=== PATIENT | female | born 1940 | race Caucasian/White ===

== ENCOUNTER 2016-06-21 13:28 | Inpatient (IN) | payer MEDICARE ==
[~2016-06-21] VITALS: Ht 149.9 cm; Wt 46.4 kg
[~2016-06-21 13:28] MED LIST: ACET-784 PO; BUME1TAB30 PO; CARB1TAB14 PO; CRAN250T2 PO; DIVA250T4 PO; LEVO125T4 PO; MIRT15 PO; MOM30 PO; MULT-1203 PO; NYST30C TP; OMEP20 PO; ONDA4TAB4 PO; POTA20PA3 PO; PREG25 PO; PROP10 PO; SIMV-259 PO
[2016-06-21] MEDS ORDERED: SODIUM CHLORIDE 0.9% 1,000 ML IV ONE (16:30)
[2016-06-21] MEDS ORDERED: 0.9% SODIUM CHLORIDE 10 ML SYRINGE IVP PRN (16:30)
[2016-06-21] MEDS ORDERED: KETOROLAC TROMETHAMINE 30 MG/ML VIAL IVP ONE (16:30)
[2016-06-21] MEDS ORDERED: MORPHINE SULFATE 4 MG/ML SYRINGE IVP ONE (16:30)
[2016-06-21] MEDS ORDERED: ONDANSETRON HCL 4 MG/2 ML VIAL IVP PRN ×2 (16:30→17:15)
[2016-06-21] MEDS ORDERED: ONDANSETRON HCL 4 MG/2 ML VIAL IVP ONE (16:30)
[2016-06-21 16:49] LABS: EOSINOPHILS % (AUTO) 0.1 % (1.0-6.0); HEMATOCRIT 44.4 % (36-46); HEMOGLOBIN 14.6 g/dL (12.0-16.0); LYMPHOCYTES % (AUTO) 7.6 % (22.0-44.0); MEAN CORPUSCULAR HEMOGLOBIN 30.5 pg (26.0-34.0); MEAN CORPUSCULAR HGB CONC 32.8 G/dL (31.0-37.0); MEAN CORPUSCULAR VOLUME 93 fL (80-100); MONOCYTES % (AUTO) 7.4 % (2.0-9.0); NEUTROPHILS # (AUTO) 11.6 K/uL (1.8-7.7); NEUTROPHILS % (AUTO) 84.9 % (40.0-70.0); PLATELET COUNT (AUTO) 352 K/uL (150-450); RED BLOOD CELL COUNT(AUTO) 4.78 MIL/uL (4.00-5.20); RED CELL DISTRIBUTION WIDTH 15.4 % (11.5-14.5); WHITE BLOOD COUNT (AUTO) 13.7 K/uL (4.5-11.0)
[2016-06-21 17:02] LABS: CALCIUM, TOTAL 10.3 mg/dL (8.8-10.5); CREATININE 2.81 mg/dL (0.60-1.30); POTASSIUM 3.9 mmol/L (3.5-5.1)
[2016-06-21 17:08] LABS: ALBUMIN 3.8 g/dL (3.4-5.0); BILIRUBIN,TOTAL 0.7 mg/dL (0.1-1.0); TOTAL PROTEIN, SERUM 7.3 g/dL (6.4-8.2)
[2016-06-21 17:15] LABS: PROTHROMBIN TIME 10.7 SEC (9.4-11.6)
[2016-06-21] MEDS ORDERED: BISACODYL 10 MG RECTAL RECTAL SUPPOSITORY PR PRN (17:15)
[2016-06-21] MEDS ORDERED: MAGNESIUM HYDROXIDE SUSPENSION 30 ML UDCUP PO PRN (17:15)
[2016-06-21] MEDS: HEPARIN SODIUM,PORCINE 5,000 UNITS/ML VIAL SQ SCH (17:47)
[2016-06-21 19:31] VITALS: BP 101/61
[2016-06-21] MEDS ORDERED: MIRTAZAPINE 15 MG TABLET PO SCH (21:00)
[2016-06-21] MEDS: CARBIDOPA/LEVODOPA 25-100 MG TABLET PO SCH (21:23)
[2016-06-21] MEDS: SIMVASTATIN 10 MG TABLET PO SCH (21:23)
[2016-06-21 23:28] VITALS: BP 98/56
[2016-06-22 04:16] VITALS: BP 106/58
[2016-06-22] MEDS: HYDROmorphone 2 MG/ML SYRINGE IVP PRN ×3 (04:20→17:25)
[2016-06-22] MEDS: LEVOTHYROXINE SODIUM 125 MCG TABLET PO SCH (06:21)
[2016-06-22] MEDS: HEPARIN SODIUM,PORCINE 5,000 UNITS/ML VIAL SQ SCH ×2 (06:21→20:47)
[2016-06-22 06:41] LABS: BASOPHILS # (AUTO) 0.02 K/uL (0.00-0.20); BASOPHILS % (AUTO) 0.2 % (0.0-2.0); EOSINOPHILS # (AUTO) 0.04 K/uL (0.00-0.70); EOSINOPHILS % (AUTO) 0.46 % (1.0-6.0); HEMATOCRIT 36.2 % (36-46); HEMOGLOBIN 12.2 g/dL (12.0-16.0); LYMPHOCYTES # (AUTO) 1.1 K/uL (1.0-4.8); LYMPHOCYTES % (AUTO) 14.2 % (22.0-44.0); MEAN CORPUSCULAR HEMOGLOBIN 31.3 pg (26.0-34.0); MEAN CORPUSCULAR HGB CONC 33.5 G/dL (31.0-37.0); MEAN CORPUSCULAR VOLUME 93 fL (80-100); MONOCYTES # (AUTO) 0.6 K/uL (0.1-1.0); MONOCYTES % (AUTO) 7.8 % (2.0-9.0); NEUTROPHILS # (AUTO) 6.1 K/uL (1.8-7.7); NEUTROPHILS % (AUTO) 77.4 % (40.0-70.0); PLATELET COUNT (AUTO) 231 K/uL (150-450); RED BLOOD CELL COUNT(AUTO) 3.88 MIL/uL (4.00-5.20); RED CELL DISTRIBUTION WIDTH 15.4 % (11.5-14.5); WHITE BLOOD COUNT (AUTO) 7.9 K/uL (4.5-11.0)
[2016-06-22] MEDS ORDERED: PNEUMOCOCCAL VACCINE POLYVALENT 0.5 ML VIAL [PPSV23] IM ONE (07:00)
[2016-06-22 07:15] VITALS: BP 116/74
[2016-06-22 07:32] LABS: ANION GAP 8 mmol/L (8-16); CALCIUM, TOTAL 8.8 mg/dL (8.8-10.5); CARBON DIOXIDE 28 mmol/L (22-29); CHLORIDE 106 mmol/L (98-107); CHOL/HDL RATIO 1.9 (3.9-5.7); CREATINE KINASE MB 1.6 ng/mL (0-5); CREATINE KINASE, TOTAL 162 U/L (26-192); CREATININE 1.57 mg/dL (0.60-1.30); GLOMERULAR FILTR. RATE CALC 32 mL/min (>60); POTASSIUM 3.6 mmol/L (3.5-5.1); SODIUM SERUM 142 mmol/L (136-145); THYROID STIMULATING HORMONE 0.25 uIU/mL (0.36-3.74); UREA NITROGEN, BLOOD 24 mg/dL (7-18)
[2016-06-22 07:33] LABS: HEMOGLOBIN A1C 4.5 % (4.5-6.2)
[2016-06-22] MEDS: DIVALPROEX SODIUM 500 MG DR TABLET PO SCH (08:03)
[2016-06-22] MEDS: MULTIVITAMINS, THERAPEUTIC TABLET PO SCH (08:03)
[2016-06-22] MEDS: CARBIDOPA/LEVODOPA 25-100 MG TABLET PO SCH ×3 (08:03→20:47)
[2016-06-22] MEDS: PREGABALIN 50 MG CAPSULE PO SCH (08:03)
[2016-06-22] MEDS: OMEPRAZOLE 20 MG CAPSULE PO SCH (08:03)
[2016-06-22 08:34] LABS: ADD UA MICROSCOPIC YES; APPEARANCE,URINE CLEAR (CLEAR); GLUCOSE, URINE (UA) NEGATIVE (NEGATIVE); KETONES,URINE NEGATIVE (NEGATIVE); LEUKOCYTE ESTERASE ,URINE SMALL (NEGATIVE); OCCULT BLOOD,URINE NEGATIVE (NEGATIVE); PROTEIN,URINE NEGATIVE (NEGATIVE)
[2016-06-22 08:41] LABS: RBC,URINE 0-2 /HPF (0-2); SQUAMOUS EPITHELIAL CELL,UR Few /LPF (None Seen)
[2016-06-22] MEDS ORDERED: BUMETANIDE 1 MG TABLET PO SCH (09:00)
[2016-06-22 11:00] VITALS: BP 85/57
[2016-06-22] MEDS ORDERED: PREG50 PO (14:19)
[2016-06-22] MEDS ORDERED: PROP20 PO (14:19)
[2016-06-22] MEDS ORDERED: DIVA500T35 PO (14:19)
[2016-06-22] MEDS ORDERED: MAGNESIUM OXIDE 400 MG TABLET PO PRN (14:45)
[2016-06-22] MEDS ORDERED: MAGNESIUM SULFATE 4 GM/WATER 100 ML IV PRN (14:45)
[2016-06-22 15:10] VITALS: BP 94/53
[2016-06-22] MEDS: SODIUM CHLORIDE 0.9% 1,000 ML IV SCH (15:16)
[2016-06-22] MEDS: CefTRIAXone 1 GM/DEXTROSE 50 ML IV SCH (15:21)
[2016-06-22] MEDS: MAGNESIUM SULFATE 2 GM in DEXTROSE 5%-WATER 50 ML IV PRN (17:27)
[2016-06-22 19:31] VITALS: BP 97/47
[2016-06-22] MEDS: SIMVASTATIN 10 MG TABLET PO SCH (20:47)
[2016-06-22] MEDS: MIRTAZAPINE 30 MG TABLET PO SCH (20:47)
[2016-06-22 23:17] VITALS: BP 90/48
[2016-06-23 01:33] VITALS: BP 104/67
[2016-06-23] MEDS: HYDROmorphone 2 MG/ML SYRINGE IVP PRN ×3 (01:36→21:08)
[2016-06-23 04:28] VITALS: BP 123/57
[2016-06-23] MEDS: LEVOTHYROXINE SODIUM 125 MCG TABLET PO SCH (06:26)
[2016-06-23] MEDS: SODIUM CHLORIDE 0.9% 1,000 ML IV SCH ×2 (06:29→21:26)
[2016-06-23 06:40] LABS: BASOPHILS % (AUTO) 0.6 % (0.0-2.0); EOSINOPHILS % (AUTO) 2.8 % (1.0-6.0); HEMATOCRIT 35.6 % (36-46); HEMOGLOBIN 11.6 g/dL (12.0-16.0); LYMPHOCYTES # (AUTO) 1.7 K/uL (1.0-4.8); LYMPHOCYTES % (AUTO) 27.2 % (22.0-44.0); MEAN CORPUSCULAR HEMOGLOBIN 30.8 pg (26.0-34.0); MEAN CORPUSCULAR HGB CONC 32.7 G/dL (31.0-37.0); MEAN CORPUSCULAR VOLUME 94 fL (80-100); MONOCYTES # (AUTO) 0.6 K/uL (0.1-1.0); MONOCYTES % (AUTO) 9.8 % (2.0-9.0); NEUTROPHILS # (AUTO) 3.7 K/uL (1.8-7.7); NEUTROPHILS % (AUTO) 59.6 % (40.0-70.0); PLATELET COUNT (AUTO) 219 K/uL (150-450); RED BLOOD CELL COUNT(AUTO) 3.77 MIL/uL (4.00-5.20); RED CELL DISTRIBUTION WIDTH 15.7 % (11.5-14.5); WHITE BLOOD COUNT (AUTO) 6.1 K/uL (4.5-11.0)
[2016-06-23 06:53] LABS: ANION GAP 6 mmol/L (8-16); CALCIUM, TOTAL 8.6 mg/dL (8.8-10.5); CARBON DIOXIDE 31 mmol/L (22-29); CHLORIDE 107 mmol/L (98-107); CREATININE 0.79 mg/dL (0.60-1.30); GLOMERULAR FILTR. RATE CALC > 60 mL/min (>60); POTASSIUM 4.2 mmol/L (3.5-5.1); SODIUM SERUM 144 mmol/L (136-145); UREA NITROGEN, BLOOD 15 mg/dL (7-18)
[2016-06-23 07:10] VITALS: BP 117/67
[2016-06-23] MEDS: OMEPRAZOLE 20 MG CAPSULE PO SCH (08:02)
[2016-06-23] MEDS: MULTIVITAMINS, THERAPEUTIC TABLET PO SCH (08:02)
[2016-06-23] MEDS: HEPARIN SODIUM,PORCINE 5,000 UNITS/ML VIAL SQ SCH ×2 (08:03→21:08)
[2016-06-23] MEDS: CARBIDOPA/LEVODOPA 25-100 MG TABLET PO SCH ×3 (08:03→21:08)
[2016-06-23] MEDS: DIVALPROEX SODIUM 500 MG DR TABLET PO SCH (08:03)
[2016-06-23] MEDS: PREGABALIN 50 MG CAPSULE PO SCH (08:03)
[2016-06-23 11:37] VITALS: BP 100/58
[2016-06-23 15:12] VITALS: BP 111/46
[2016-06-23] MEDS: CefTRIAXone 1 GM/DEXTROSE 50 ML IV SCH (15:28)
[2016-06-23 19:42] VITALS: BP 98/55
[2016-06-23] MEDS: SIMVASTATIN 10 MG TABLET PO SCH (21:07)
[2016-06-23] MEDS: MIRTAZAPINE 30 MG TABLET PO SCH (21:07)
[2016-06-24] VITALS: BP 125/70
[2016-06-24 04:16] VITALS: BP 145/64
[2016-06-24] MEDS: HYDROmorphone 2 MG/ML SYRINGE IVP PRN ×3 (04:32→17:05)
[2016-06-24] MEDS: LEVOTHYROXINE SODIUM 100 MCG TABLET PO SCH (05:38)
[2016-06-24 07:15] VITALS: BP 133/70
[2016-06-24] MEDS: LIDOCAINE HCL 5% TRANSDERMAL PATCH TD SCH (08:34)
[2016-06-24] MEDS: CARBIDOPA/LEVODOPA 25-100 MG TABLET PO SCH ×3 (08:34→20:15)
[2016-06-24] MEDS: MULTIVITAMINS, THERAPEUTIC TABLET PO SCH (08:35)
[2016-06-24] MEDS: HEPARIN SODIUM,PORCINE 5,000 UNITS/ML VIAL SQ SCH ×2 (08:35→20:15)
[2016-06-24] MEDS: DIVALPROEX SODIUM 500 MG DR TABLET PO SCH (08:35)
[2016-06-24] MEDS: OMEPRAZOLE 20 MG CAPSULE PO SCH (08:35)
[2016-06-24 09:59] LABS: BASOPHILS % (AUTO) 0.4 % (0.0-2.0); EOSINOPHILS % (AUTO) 2.7 % (1.0-6.0); HEMATOCRIT 41.1 % (36-46); HEMOGLOBIN 13.4 g/dL (12.0-16.0); LYMPHOCYTES # (AUTO) 1.7 K/uL (1.0-4.8); LYMPHOCYTES % (AUTO) 26.9 % (22.0-44.0); MEAN CORPUSCULAR HEMOGLOBIN 30.6 pg (26.0-34.0); MEAN CORPUSCULAR HGB CONC 32.7 G/dL (31.0-37.0); MEAN CORPUSCULAR VOLUME 94 fL (80-100); MONOCYTES # (AUTO) 0.5 K/uL (0.1-1.0); MONOCYTES % (AUTO) 7.6 % (2.0-9.0); NEUTROPHILS # (AUTO) 3.9 K/uL (1.8-7.7); NEUTROPHILS % (AUTO) 62.4 % (40.0-70.0); PLATELET COUNT (AUTO) 272 K/uL (150-450); RED BLOOD CELL COUNT(AUTO) 4.39 MIL/uL (4.00-5.20); RED CELL DISTRIBUTION WIDTH 15.7 % (11.5-14.5); WHITE BLOOD COUNT (AUTO) 6.2 K/uL (4.5-11.0)
[2016-06-24 10:25] LABS: ANION GAP 10 mmol/L (8-16); CALCIUM, TOTAL 9.1 mg/dL (8.8-10.5); CARBON DIOXIDE 29 mmol/L (22-29); CHLORIDE 107 mmol/L (98-107); CREATININE 0.64 mg/dL (0.60-1.30); GLOMERULAR FILTR. RATE CALC > 60 mL/min (>60); POTASSIUM 3.7 mmol/L (3.5-5.1); SODIUM SERUM 146 mmol/L (136-145); UREA NITROGEN, BLOOD 4 mg/dL (7-18)
[2016-06-24 11:05] VITALS: BP 123/73
[2016-06-24] MEDS: SODIUM CHLORIDE 0.9% 1,000 ML IV SCH (11:13)
[2016-06-24 15:39] VITALS: BP 102/76
[2016-06-24] MEDS: SODIUM CHLORIDE 0.45% 1,000 ML IV SCH (15:39)
[2016-06-24] MEDS: CefTRIAXone 1 GM/DEXTROSE 50 ML IV SCH (15:40)
[2016-06-24 19:30] VITALS: BP 116/44
[2016-06-24] MEDS: PREGABALIN 50 MG CAPSULE PO SCH (20:15)
[2016-06-24] MEDS: MIRTAZAPINE 30 MG TABLET PO SCH (20:15)
[2016-06-24] MEDS: SIMVASTATIN 10 MG TABLET PO SCH (20:15)
[2016-06-24] MEDS: [UNRECOGNIZED DRUG - REMARK] MISC SCH (21:00)
[2016-06-25] VITALS (7 sets, daily range): BP systolic 99–134; BP diastolic 58–74
[2016-06-25] MEDS: HYDROmorphone 2 MG/ML SYRINGE IVP PRN (00:29)
[2016-06-25] MEDS: LEVOTHYROXINE SODIUM 100 MCG TABLET PO SCH (06:33)
[2016-06-25 07:11] LABS: ANION GAP 7 mmol/L (8-16); CALCIUM, TOTAL 9.1 mg/dL (8.8-10.5); CARBON DIOXIDE 29 mmol/L (22-29); CHLORIDE 108 mmol/L (98-107); CREATININE 0.69 mg/dL (0.60-1.30); GLOMERULAR FILTR. RATE CALC > 60 mL/min (>60); PHOSPHORUS 2.8 mg/dL (2.5-4.9); SODIUM SERUM 144 mmol/L (136-145); UREA NITROGEN, BLOOD 6 mg/dL (7-18)
[2016-06-25] MEDS: OMEPRAZOLE 20 MG CAPSULE PO SCH (08:28)
[2016-06-25] MEDS: CARBIDOPA/LEVODOPA 25-100 MG TABLET PO SCH ×3 (08:28→20:25)
[2016-06-25] MEDS: HEPARIN SODIUM,PORCINE 5,000 UNITS/ML VIAL SQ SCH ×2 (08:28→20:25)
[2016-06-25] MEDS: MULTIVITAMINS, THERAPEUTIC TABLET PO SCH (08:28)
[2016-06-25] MEDS: DIVALPROEX SODIUM 500 MG DR TABLET PO SCH (08:28)
[2016-06-25] MEDS: LIDOCAINE HCL 5% TRANSDERMAL PATCH TD SCH (08:28)
[2016-06-25] MEDS: SODIUM CHLORIDE 0.45% 1,000 ML IV SCH (13:00)
[2016-06-25] MEDS: CefTRIAXone 1 GM/DEXTROSE 50 ML IV SCH (16:23)
[2016-06-25] MEDS: MAGNESIUM SULFATE 2 GM in DEXTROSE 5%-WATER 50 ML IV PRN (18:09)
[2016-06-25] MEDS: MIRTAZAPINE 30 MG TABLET PO SCH (20:25)
[2016-06-25] MEDS: PREGABALIN 50 MG CAPSULE PO SCH (20:25)
[2016-06-25] MEDS: SIMVASTATIN 10 MG TABLET PO SCH (20:25)
[2016-06-25] MEDS: [UNRECOGNIZED DRUG - REMARK] MISC SCH (21:00)
[2016-06-26 05:37] VITALS: BP 133/72
[2016-06-26] MEDS ORDERED: RINGERS SOLUTION,LACTATED 1,000 ML IV ONE ×2 (05:56→06:30)
[2016-06-26 06:09] LABS: BASOPHILS # (AUTO) 0.04 K/uL (0.00-0.20); EOSINOPHILS # (AUTO) 0.16 K/uL (0.00-0.70); HEMATOCRIT 35.5 % (36-46); HEMOGLOBIN 12.4 g/dL (12.0-16.0); LYMPHOCYTES # (AUTO) 1.4 K/uL (1.0-4.8); LYMPHOCYTES % (AUTO) 29.5 % (22.0-44.0); MEAN CORPUSCULAR HGB CONC 34.9 G/dL (31.0-37.0); MEAN CORPUSCULAR VOLUME 92 fL (80-100); MONOCYTES # (AUTO) 0.4 K/uL (0.1-1.0); MONOCYTES % (AUTO) 8.1 % (2.0-9.0); NEUTROPHILS # (AUTO) 2.7 K/uL (1.8-7.7); NEUTROPHILS % (AUTO) 57.9 % (40.0-70.0); PLATELET COUNT (AUTO) 270 K/uL (150-450); RED BLOOD CELL COUNT(AUTO) 3.88 MIL/uL (4.00-5.20); RED CELL DISTRIBUTION WIDTH 15.7 % (11.5-14.5); WHITE BLOOD COUNT (AUTO) 4.6 K/uL (4.5-11.0)
[2016-06-26 06:24] LABS: ANION GAP 4 mmol/L (8-16); CALCIUM, TOTAL 9.4 mg/dL (8.8-10.5); CARBON DIOXIDE 30 mmol/L (22-29); CHLORIDE 110 mmol/L (98-107); CREATININE 0.73 mg/dL (0.60-1.30); GLOMERULAR FILTR. RATE CALC > 60 mL/min (>60); PHOSPHORUS 3.2 mg/dL (2.5-4.9); POTASSIUM 3.9 mmol/L (3.5-5.1); SODIUM SERUM 144 mmol/L (136-145); UREA NITROGEN, BLOOD 7 mg/dL (7-18)
[2016-06-26] MEDS: LEVOTHYROXINE SODIUM 100 MCG TABLET PO SCH (06:27)
[2016-06-26] MEDS ORDERED: VANCOMYCIN HCL 1 GM/VIAL ONE ×2 (07:11→07:56)
[2016-06-26] MEDS ORDERED: SODIUM CHLORIDE 0.9% 100 ML ONE (07:12)
[2016-06-26] MEDS ORDERED: SODIUM CL IRRIG SOLN BAG 3,000 ML IRRIG ONE (07:43)
[2016-06-26] MEDS: OMEPRAZOLE 20 MG CAPSULE PO SCH (09:00)
[2016-06-26] MEDS: LIDOCAINE HCL 5% TRANSDERMAL PATCH TD SCH (09:00)
[2016-06-26] MEDS: HEPARIN SODIUM,PORCINE 5,000 UNITS/ML VIAL SQ SCH ×2 (09:00→19:39)
[2016-06-26] MEDS: CARBIDOPA/LEVODOPA 25-100 MG TABLET PO SCH ×3 (09:00→19:39)
[2016-06-26] MEDS: DIVALPROEX SODIUM 500 MG DR TABLET PO SCH (09:00)
[2016-06-26] MEDS: MULTIVITAMINS, THERAPEUTIC TABLET PO SCH (09:00)
[2016-06-26] MEDS ORDERED: FentaNYL CITRATE-PF 100 MCG/2 ML VIAL IVP PRN (11:00)
[2016-06-26] MEDS ORDERED: HYDROmorphone 2 MG/ML SYRINGE IVP PRN (11:00)
[2016-06-26] MEDS ORDERED: MEPERIDINE-PF 25 MG/ML SYRINGE IVP PRN (11:00)
[2016-06-26 11:02] LABS: BASOPHILS % (AUTO) 0.4 % (0.0-2.0); EOSINOPHILS % (AUTO) 0.2 % (1.0-6.0); HEMATOCRIT 37.6 % (36-46); HEMOGLOBIN 12.4 g/dL (12.0-16.0); LYMPHOCYTES # (AUTO) 0.8 K/uL (1.0-4.8); LYMPHOCYTES % (AUTO) 6.8 % (22.0-44.0); MEAN CORPUSCULAR HEMOGLOBIN 30.9 pg (26.0-34.0); MEAN CORPUSCULAR VOLUME 94 fL (80-100); MONOCYTES # (AUTO) 0.4 K/uL (0.1-1.0); MONOCYTES % (AUTO) 2.9 % (2.0-9.0); NEUTROPHILS # (AUTO) 10.8 K/uL (1.8-7.7); PLATELET COUNT (AUTO) 381 K/uL (150-450); RED BLOOD CELL COUNT(AUTO) 4.02 MIL/uL (4.00-5.20); RED CELL DISTRIBUTION WIDTH 15.7 % (11.5-14.5); WHITE BLOOD COUNT (AUTO) 12.1 K/uL (4.5-11.0)
[2016-06-26 11:04] LABS: NEUTROPHILS % (AUTO) 89.7 % (40.0-70.0)
[2016-06-26] MEDS ORDERED: ACETAMINOPHEN 1000 MG/ISO-OSM 100 ML IV ONE (11:12)
[2016-06-26] MEDS: ACETAMINOPHEN 1000 MG/ISO-OSM 100 ML IV SCH ×3 (11:14→23:07)
[2016-06-26] MEDS ORDERED: VANCOMYCIN HCL 1 GM/D5% WATER 200 ML IV ONE (11:15)
[2016-06-26] MEDS ORDERED: LIDOCAINE HCL/PF 2% 5 ML VIAL INJ ONE (12:00)
[2016-06-26] MEDS ORDERED: SODIUM CHLORIDE 0.9% 1,000 ML IV SCH (12:00)
[2016-06-26] MEDS ORDERED: NEOSTIGMINE METHYLSULFATE 1 MG/ML 10 ML VIAL IVP ONE (12:00)
[2016-06-26] MEDS ORDERED: PROPOFOL 1% 20 ML VIAL IVP ONE (12:00)
[2016-06-26] MEDS ORDERED: GLYCOPYRROLATE 0.2 MG/ML VIAL IM ONE (12:00)
[2016-06-26] MEDS ORDERED: ONDANSETRON HCL 4 MG/2 ML VIAL IVP ONE (12:00)
[2016-06-26] MEDS ORDERED: DEXAMETHASONE SOD PHOS 4 MG/ML VIAL IVP ONE (12:00)
[2016-06-26] MEDS ORDERED: ROCURONIUM BROMIDE 10 MG/ML 5 ML VIAL IVP ONE (12:00)
[2016-06-26] MEDS ORDERED: FentaNYL CITRATE-PF 100 MCG/2 ML VIAL IVP ONE (12:00)
[2016-06-26] MEDS ORDERED: PHENYLEPHRINE HCL 10 MG/ML VIAL IVP ONE (12:00)
[2016-06-26 12:44] VITALS: BP 90/56
[2016-06-26] MEDS: SODIUM CHLORIDE 0.45% 1,000 ML IV SCH (13:00)
[2016-06-26 16:07] VITALS: BP 99/51
[2016-06-26] MEDS: CefTRIAXone 1 GM/DEXTROSE 50 ML IV SCH (16:24)
[2016-06-26] MEDS: VANCOMYCIN HCL 750 MG in DEXTROSE 5%-WATER 150 ML IV SCH (19:34)
[2016-06-26] MEDS: SIMVASTATIN 10 MG TABLET PO SCH (19:39)
[2016-06-26] MEDS: MIRTAZAPINE 30 MG TABLET PO SCH (19:39)
[2016-06-26] MEDS: PREGABALIN 50 MG CAPSULE PO SCH (19:40)
[2016-06-26] MEDS ORDERED: VANCOMYCIN HCL 750 MG in DEXTROSE 5%-WATER 150 ML IV ONE (20:00)
[2016-06-26] MEDS: OXYGEN THERAPY IH SCH (20:00)
[2016-06-26 20:04] VITALS: BP 79/46
[2016-06-26] MEDS: [UNRECOGNIZED DRUG - REMARK] MISC SCH (21:00)
[2016-06-26 23:47] VITALS: BP 100/61
[2016-06-27] MEDS: HYDROmorphone 2 MG/ML SYRINGE IVP PRN ×2 (01:37→06:08)
[2016-06-27 04:20] VITALS: BP 131/79
[2016-06-27] MEDS: ACETAMINOPHEN 1000 MG/ISO-OSM 100 ML IV SCH ×2 (04:36→11:47)
[2016-06-27] MEDS: LEVOTHYROXINE SODIUM 100 MCG TABLET PO SCH (06:07)
[2016-06-27 07:37] VITALS: BP 119/55
[2016-06-27] MEDS: OXYGEN THERAPY IH SCH (08:00)
[2016-06-27] MEDS: VANCOMYCIN HCL 750 MG in DEXTROSE 5%-WATER 150 ML IV SCH (08:34)
[2016-06-27] MEDS: MULTIVITAMINS, THERAPEUTIC TABLET PO SCH (08:34)
[2016-06-27] MEDS: OMEPRAZOLE 20 MG CAPSULE PO SCH (08:34)
[2016-06-27] MEDS: CARBIDOPA/LEVODOPA 25-100 MG TABLET PO SCH ×2 (08:34→17:16)
[2016-06-27] MEDS: HEPARIN SODIUM,PORCINE 5,000 UNITS/ML VIAL SQ SCH (08:34)
[2016-06-27] MEDS: DIVALPROEX SODIUM 500 MG DR TABLET PO SCH (08:34)
[2016-06-27] MEDS: LIDOCAINE HCL 5% TRANSDERMAL PATCH TD SCH (08:35)
[2016-06-27] MEDS ORDERED: SODIUM CHLORIDE 0.9% 250 ML IV ONE (08:39)
[2016-06-27 09:44] LABS: ANION GAP 14 mmol/L (8-16); CARBON DIOXIDE 21 mmol/L (22-29); CHLORIDE 111 mmol/L (98-107); CREATININE 0.84 mg/dL (0.60-1.30); GLOMERULAR FILTR. RATE CALC > 60 mL/min (>60); POTASSIUM 4.2 mmol/L (3.5-5.1); SODIUM SERUM 146 mmol/L (136-145); UREA NITROGEN, BLOOD 12 mg/dL (7-18)
[2016-06-27 11:46] VITALS: BP 125/55
[2016-06-27] MEDS: SODIUM CHLORIDE 0.45% 1,000 ML IV SCH (13:00)
[2016-06-27 15:58] VITALS: BP 122/64
[2016-06-27] MEDS ORDERED: OxyCODONE HCL/ACETAMINOPHEN 5-325 MG TABLET PO PRN (17:00)
[2016-06-27] MEDS: CefTRIAXone 1 GM/DEXTROSE 50 ML IV SCH (17:16)
== END 2016-06-27 18:10 | DRG 483 ==
LOC: EMS 13:29 → 6N 16:46
PROVIDERS: ADMIT Internal Medicine Geriatric Medicine; ATTEND Internal Medicine Geriatric Medicine
PROC: 0LS30ZZ Reposition Right Upper Arm Tendon, Open Approach (ICD-10-PCS; 2016-06-26)
PROC: 0RRJ00Z Replacement of Right Shoulder Joint with Reverse Ball and Socket Synthetic Substitute, Open Approach (ICD-10-PCS; principal; 2016-06-26 07:30)
DX: S42.201A Unspecified fracture of upper end of right humerus, initial encounter for closed fracture (principal); N17.9 Acute kidney failure, unspecified; N39.0 Urinary tract infection, site not specified; G20 Parkinson's disease; K21.9 Gastro-esophageal reflux disease without esophagitis; E78.5 Hyperlipidemia, unspecified; E03.9 Hypothyroidism, unspecified; E78.00 Pure hypercholesterolemia, unspecified; F25.9 Schizoaffective disorder, unspecified; W19.XXXA Unspecified fall, initial encounter; F31.9 Bipolar disorder, unspecified; I12.9 Hypertensive chronic kidney disease with stage 1 through stage 4 chronic kidney disease, or unspecified chronic kidney disease; M19.90 Unspecified osteoarthritis, unspecified site; M79.7 Fibromyalgia; M81.0 Age-related osteoporosis without current pathological fracture; N18.9 Chronic kidney disease, unspecified; Z90.49 Acquired absence of other specified parts of digestive tract; Z88.5 Allergy status to narcotic agent; Z88.8 Allergy status to other drugs, medicaments and biological substances; Z91.012 Allergy to eggs; Y93.89 Activity, other specified; Z85.3 Personal history of malignant neoplasm of breast; Z90.710 Acquired absence of both cervix and uterus; Z91.5 Personal history of self-harm; Z81.8 Family history of other mental and behavioral disorders; Y92.89 Other specified places as the place of occurrence of the external cause; Y99.8 Other external cause status; Z79.899 Other long term (current) drug therapy
CPT/HCPCS: 73200; 76770; 82306; 82570; 82607; 82746; 83036; 83735; 84100; 84300; 84439; 84443; 84540; 87081; 87086; 89050; 90471; 93005; 93306; 96361; 96374; 96375; 97110; 97162; 97166; 99285; J0131; J0696; J1100; J1170; J1644; J2270; J2370; J2405; J2704; J3010; J3370; J3475; J3490; J7030; J7050; J7060; J7120

== ENCOUNTER 2016-07-14 17:06 | Inpatient (IN) | payer MEDICARE ==
[~2016-07-14] VITALS: Ht 149.9 cm; Wt 45.9 kg
[~2016-07-14 17:06] MED LIST changes: -DIVA250T4 PO; +DIVA500T35 PO; -PREG25 PO; +PREG50 PO; -PROP10 PO; +PROP20 PO; -SIMV-259 PO; +SIMV10 PO
[2016-07-14] MEDS ORDERED: ZOLP5 PO (17:16)
[2016-07-14] MEDS ORDERED: HYDR1LIQ5 PO (17:16)
[2016-07-14] MEDS ORDERED: FURO40 PO (18:32)
[2016-07-14 19:53] LABS: EOSINOPHILS # (AUTO) 0.03 K/uL (0.00-0.70); HEMATOCRIT 29.8 % (36-46); HEMOGLOBIN 9.8 g/dL (12.0-16.0); LYMPHOCYTES # (AUTO) 0.7 K/uL (1.0-4.8); LYMPHOCYTES % (AUTO) 4.5 % (22.0-44.0); MEAN CORPUSCULAR HEMOGLOBIN 30.9 pg (26.0-34.0); MEAN CORPUSCULAR HGB CONC 33.1 G/dL (31.0-37.0); MEAN CORPUSCULAR VOLUME 93 fL (80-100); MONOCYTES # (AUTO) 0.6 K/uL (0.1-1.0); NEUTROPHILS # (AUTO) 13.1 K/uL (1.8-7.7); PLATELET COUNT (AUTO) 518 K/uL (150-450); RED BLOOD CELL COUNT(AUTO) 3.18 MIL/uL (4.00-5.20); RED CELL DISTRIBUTION WIDTH 16.4 % (11.5-14.5); WHITE BLOOD COUNT (AUTO) 14.3 K/uL (4.5-11.0)
[2016-07-14] MEDS ORDERED: SODIUM CHLORIDE 0.9% 1,000 ML IV ONE ×2 (19:57→20:15)
[2016-07-14 19:59] LABS: NEUTROPHILS % (AUTO) 91.3 % (40.0-70.0)
[2016-07-14 20:03] LABS: ANION GAP 7 mmol/L (8-16); CALCIUM, TOTAL 9.2 mg/dL (8.8-10.5); CARBON DIOXIDE 31 mmol/L (22-29); CHLORIDE 103 mmol/L (98-107); CREATININE 0.79 mg/dL (0.60-1.30); GLOMERULAR FILTR. RATE CALC > 60 mL/min (>60); SODIUM SERUM 141 mmol/L (136-145); UREA NITROGEN, BLOOD 17 mg/dL (7-18)
[2016-07-14 20:06] LABS: ALANINE AMINOTRANSFERASE 7 U/L (12-78); ALBUMIN 2.2 g/dL (3.4-5.0); ASPARTATE AMINOTRANSFERASE 14 U/L (15-37); BILIRUBIN,TOTAL 0.3 mg/dL (0.1-1.0); TOTAL PROTEIN, SERUM 6.1 g/dL (6.4-8.2)
[2016-07-14 20:16] LABS: RBC MORPHOLOGY COMMENT ABNORMAL RBC MORPH
[2016-07-14] MEDS ORDERED: ALBUTEROL SULFATE 2.5 MG/0.5 ML NEB SOLUTION NEB PRN (21:15)
[2016-07-14] MEDS ORDERED: MAGNESIUM HYDROXIDE SUSPENSION 30 ML UDCUP PO PRN (21:15)
[2016-07-14] MEDS: SODIUM CHLORIDE 0.9% 1,000 ML IV SCH (21:40)
[2016-07-14 21:51] LABS: APPEARANCE,URINE CLEAR (CLEAR); GLUCOSE, URINE (UA) NEGATIVE (NEGATIVE); KETONES,URINE NEGATIVE (NEGATIVE); LEUKOCYTE ESTERASE ,URINE NEGATIVE (NEGATIVE); OCCULT BLOOD,URINE NEGATIVE (NEGATIVE); PROTEIN,URINE NEGATIVE (NEGATIVE)
[2016-07-14 22:00] LABS: ADD UA MICROSCOPIC NO
[2016-07-14 22:43] VITALS: BP 80/46
[2016-07-14 23:30] VITALS: BP 91/53
[2016-07-14] MEDS: HEPARIN SODIUM,PORCINE 5,000 UNITS/ML VIAL SQ SCH (23:32)
[2016-07-15] VITALS (7 sets, daily range): BP systolic 88–113; BP diastolic 35–65
[2016-07-15] MEDS: DOCUSATE SODIUM 100 MG CAPSULE PO SCH ×2 (08:29→19:55)
[2016-07-15] MEDS: ASPIRIN 81 MG CHEWABLE TABLET PO SCH (08:29)
[2016-07-15] MEDS: MULTIVITAMINS WITH MINERALS, THERAPEUTIC TABLET PO SCH (08:29)
[2016-07-15] MEDS: HEPARIN SODIUM,PORCINE 5,000 UNITS/ML VIAL SQ SCH ×2 (08:30→17:02)
[2016-07-15 09:41] LABS: EOSINOPHILS # (AUTO) 0.03 K/uL (0.00-0.70); EOSINOPHILS % (AUTO) 0.33 % (1.0-6.0); HEMATOCRIT 30.7 % (36-46); HEMOGLOBIN 10.1 g/dL (12.0-16.0); LYMPHOCYTES # (AUTO) 0.6 K/uL (1.0-4.8); LYMPHOCYTES % (AUTO) 7.2 % (22.0-44.0); MEAN CORPUSCULAR HEMOGLOBIN 30.9 pg (26.0-34.0); MEAN CORPUSCULAR VOLUME 94 fL (80-100); MONOCYTES # (AUTO) 0.4 K/uL (0.1-1.0); MONOCYTES % (AUTO) 5.2 % (2.0-9.0); NEUTROPHILS % (AUTO) 87.2 % (40.0-70.0); PLATELET COUNT (AUTO) 480 K/uL (150-450); RED BLOOD CELL COUNT(AUTO) 3.27 MIL/uL (4.00-5.20); RED CELL DISTRIBUTION WIDTH 16.5 % (11.5-14.5); WHITE BLOOD COUNT (AUTO) 8.1 K/uL (4.5-11.0)
[2016-07-15] MEDS: ACETAMINOPHEN 325 MG TABLET PO PRN (11:13)
[2016-07-15] MEDS: SODIUM CHLORIDE 0.9% 1,000 ML IV SCH (11:13)
[2016-07-15] MEDS ORDERED: 0.9% SODIUM CHLORIDE 5 ML NEB SOLUTION NEB ONE (14:48)
[2016-07-15] MEDS: OxyCODONE HCL/ACETAMINOPHEN 5-325 MG TABLET PO PRN (17:03)
[2016-07-16] MEDS: OxyCODONE HCL/ACETAMINOPHEN 5-325 MG TABLET PO PRN ×3 (00:03→15:48)
[2016-07-16] MEDS: HEPARIN SODIUM,PORCINE 5,000 UNITS/ML VIAL SQ SCH ×3 (00:03→15:48)
[2016-07-16 04:37] VITALS: BP 105/46
[2016-07-16] MEDS: SODIUM CHLORIDE 0.9% 1,000 ML IV SCH (08:16)
[2016-07-16] MEDS: ASPIRIN 81 MG CHEWABLE TABLET PO SCH (08:16)
[2016-07-16] MEDS: MULTIVITAMINS WITH MINERALS, THERAPEUTIC TABLET PO SCH (08:16)
[2016-07-16] MEDS: DOCUSATE SODIUM 100 MG CAPSULE PO SCH ×2 (08:17→20:53)
[2016-07-16 08:24] VITALS: BP 90/43
[2016-07-16] MEDS: ACETAMINOPHEN 325 MG TABLET PO PRN (10:03)
[2016-07-16 11:35] VITALS: BP 110/60
[2016-07-16] MEDS ORDERED: ZOLPIDEM TARTRATE 5 MG TABLET PO PRN (12:45)
[2016-07-16] MEDS ORDERED: ALPRAZolam 0.25 MG TABLET PO PRN (13:00)
[2016-07-16] MEDS: ONDANSETRON HCL 4 MG TABLET PO SCH ×2 (14:01→18:35)
[2016-07-16] MEDS: CARBIDOPA/LEVODOPA 25-100 MG TABLET PO SCH ×2 (15:48→20:53)
[2016-07-16 16:02] VITALS: BP 95/55
[2016-07-16 20:08] VITALS: BP 98/57
[2016-07-16] MEDS: MIRTAZAPINE 15 MG TABLET PO SCH (20:53)
[2016-07-16] MEDS: SIMVASTATIN 10 MG TABLET PO SCH (20:53)
[2016-07-17] MEDS: HEPARIN SODIUM,PORCINE 5,000 UNITS/ML VIAL SQ SCH ×3 (00:27→16:55)
[2016-07-17] MEDS: ONDANSETRON HCL 4 MG TABLET PO SCH ×4 (00:27→18:15)
[2016-07-17] MEDS: SODIUM CHLORIDE 0.9% 1,000 ML IV SCH ×2 (00:28→17:27)
[2016-07-17 04:16] VITALS: BP 100/55
[2016-07-17] MEDS: LEVOTHYROXINE SODIUM 125 MCG TABLET PO SCH (06:18)
[2016-07-17 07:05] LABS: CREATINE KINASE, TOTAL 29 U/L (26-192); THYROID STIMULATING HORMONE 1.61 uIU/mL (0.36-3.74)
[2016-07-17 07:35] VITALS: BP 137/70
[2016-07-17 08:26] LABS: APPEARANCE,URINE CLOUDY (CLEAR); GLUCOSE, URINE (UA) NEGATIVE (NEGATIVE); KETONES,URINE NEGATIVE (NEGATIVE); LEUKOCYTE ESTERASE ,URINE LARGE (NEGATIVE); OCCULT BLOOD,URINE MODERATE (NEGATIVE); PH,URINE 7.5 (5.0-8.0); PROTEIN,URINE NEGATIVE (NEGATIVE)
[2016-07-17] MEDS: CARBIDOPA/LEVODOPA 25-100 MG TABLET PO SCH ×3 (08:50→19:56)
[2016-07-17] MEDS: MULTIVITAMINS WITH MINERALS, THERAPEUTIC TABLET PO SCH (08:50)
[2016-07-17] MEDS: ASPIRIN 81 MG CHEWABLE TABLET PO SCH (08:50)
[2016-07-17] MEDS: PREGABALIN 50 MG CAPSULE PO SCH (08:50)
[2016-07-17] MEDS: DIVALPROEX SODIUM 500 MG DR TABLET PO SCH (08:50)
[2016-07-17] MEDS: DOCUSATE SODIUM 100 MG CAPSULE PO SCH ×2 (08:50→19:56)
[2016-07-17] MEDS: OxyCODONE HCL/ACETAMINOPHEN 5-325 MG TABLET PO PRN ×2 (08:53→19:56)
[2016-07-17 10:10] LABS: ADD UA MICROSCOPIC YES
[2016-07-17 10:15] LABS: WBC,URINE 51-100 /HPF (0-5)
[2016-07-17 10:16] LABS: SQUAMOUS EPITHELIAL CELL,UR Rare /LPF (None Seen)
[2016-07-17] MEDS ORDERED: CefTRIAXone 1 GM/DEXTROSE 50 ML IV SCH (11:15)
[2016-07-17 11:40] VITALS: BP 101/60
[2016-07-17 16:44] VITALS: BP 101/49
[2016-07-17] MEDS ORDERED: 0.9% SODIUM CHLORIDE 10 ML SYRINGE IVP PRN (19:30)
[2016-07-17] MEDS: SIMVASTATIN 10 MG TABLET PO SCH (19:56)
[2016-07-17] MEDS: MIRTAZAPINE 15 MG TABLET PO SCH (19:56)
[2016-07-17 20:11] VITALS: BP 109/62
[2016-07-18 00:16] VITALS: BP 100/58
[2016-07-18] MEDS: OxyCODONE HCL/ACETAMINOPHEN 5-325 MG TABLET PO PRN ×2 (02:39→09:17)
[2016-07-18 05:27] VITALS: BP 97/53
[2016-07-18] MEDS: LEVOTHYROXINE SODIUM 125 MCG TABLET PO SCH (06:25)
[2016-07-18] MEDS: ONDANSETRON HCL 4 MG TABLET PO SCH ×2 (06:25)
[2016-07-18 08:02] VITALS: BP 121/66
[2016-07-18] MEDS: CARBIDOPA/LEVODOPA 25-100 MG TABLET PO SCH (08:37)
[2016-07-18] MEDS: DOCUSATE SODIUM 100 MG CAPSULE PO SCH (08:37)
[2016-07-18] MEDS: DIVALPROEX SODIUM 500 MG DR TABLET PO SCH (08:37)
[2016-07-18] MEDS: MULTIVITAMINS WITH MINERALS, THERAPEUTIC TABLET PO SCH (08:37)
[2016-07-18] MEDS: PREGABALIN 50 MG CAPSULE PO SCH (08:37)
[2016-07-18] MEDS: HEPARIN SODIUM,PORCINE 5,000 UNITS/ML VIAL SQ SCH ×2 (08:38)
[2016-07-18] MEDS: ASPIRIN 81 MG CHEWABLE TABLET PO SCH (08:38)
[2016-07-18] MEDS: SODIUM CHLORIDE 0.9% 1,000 ML IV SCH (08:42)
== END 2016-07-18 11:12 | DRG 640 ==
LOC: EMS 17:08 → 6N 20:15
PROVIDERS: ADMIT Internal Medicine; ATTEND Internal Medicine Geriatric Medicine
DX: E86.0 Dehydration (principal); E43 Unspecified severe protein-calorie malnutrition; N39.0 Urinary tract infection, site not specified; R62.7 Adult failure to thrive; D72.829 Elevated white blood cell count, unspecified; G20 Parkinson's disease; K21.9 Gastro-esophageal reflux disease without esophagitis; I10 Essential (primary) hypertension; M79.7 Fibromyalgia; S30.810A Abrasion of lower back and pelvis, initial encounter; F31.9 Bipolar disorder, unspecified; S30.0XXA Contusion of lower back and pelvis, initial encounter; X58.XXXA Exposure to other specified factors, initial encounter; Z96.612 Presence of left artificial shoulder joint; I95.9 Hypotension, unspecified; D63.8 Anemia in other chronic diseases classified elsewhere; E78.5 Hyperlipidemia, unspecified; F03.90 Unspecified dementia, unspecified severity, without behavioral disturbance, psychotic disturbance, mood disturbance, and anxiety; E03.9 Hypothyroidism, unspecified; Z88.8 Allergy status to other drugs, medicaments and biological substances; Z85.3 Personal history of malignant neoplasm of breast; Z91.19 Patient's noncompliance with other medical treatment and regimen; Z90.710 Acquired absence of both cervix and uterus; Z88.6 Allergy status to analgesic agent; Z91.012 Allergy to eggs; Z79.82 Long term (current) use of aspirin; Z68.20 Body mass index [BMI] 20.0-20.9, adult; Y93.89 Activity, other specified; Y92.89 Other specified places as the place of occurrence of the external cause; Y99.8 Other external cause status
CPT/HCPCS: 82306; 84439; 84443; 87081; 87086; 93005; 96360; 97116; 97162; 97166; 97530; 99285; J0696; J1644; J7030; Q0162

== ENCOUNTER 2016-07-18 11:15 | Inpatient (IN) | payer MEDICARE ==
[~2016-07-18] VITALS: Ht 149.9 cm; Wt 44.9 kg
[~2016-07-18 11:15] MED LIST changes: -BUME1TAB30 PO; +FURO40 PO; +HYDR1LIQ5 PO; +ZOLP5 PO
[2016-07-18 12:00] VITALS: BP 100/50
[2016-07-18] MEDS: ONDANSETRON HCL 4 MG TABLET PO PRN (12:50)
[2016-07-18 13:13] LABS: APPEARANCE,URINE CLOUDY (CLEAR); GLUCOSE, URINE (UA) NEGATIVE (NEGATIVE); KETONES,URINE NEGATIVE (NEGATIVE); LEUKOCYTE ESTERASE ,URINE MODERATE (NEGATIVE); OCCULT BLOOD,URINE LARGE (NEGATIVE); PH,URINE 7.5 (5.0-8.0); PROTEIN,URINE TRACE (NEGATIVE)
[2016-07-18 14:09] LABS: WBC,URINE >100 /HPF (0-5)
[2016-07-18 14:30] VITALS: BP 101/57
[2016-07-18 16:40] VITALS: BP 101/57
[2016-07-18] MEDS: HEPARIN SODIUM,PORCINE 5,000 UNITS/ML VIAL SQ SCH (16:50)
[2016-07-18] MEDS: CARBIDOPA/LEVODOPA 25-100 MG TABLET PO SCH ×2 (16:50→22:20)
[2016-07-18] MEDS: ACETAMINOPHEN 325 MG TABLET PO PRN (16:58)
[2016-07-18] MEDS ORDERED: ZOLPIDEM TARTRATE 5 MG TABLET PO PRN (17:00)
[2016-07-18] MEDS ORDERED: ALBUTEROL SULFATE 2.5 MG/0.5 ML NEB SOLUTION NEB PRN (17:00)
[2016-07-18] MEDS ORDERED: SODIUM CHLORIDE 0.9% 100 ML ONE (17:13)
[2016-07-18] MEDS: CefTRIAXone 1 GM/DEXTROSE 50 ML IV SCH (18:21)
[2016-07-18] MEDS ORDERED: DOCUSATE SODIUM 100 MG CAPSULE PO SCH (21:00)
[2016-07-18] MEDS: MIRTAZAPINE 15 MG TABLET PO SCH (22:20)
[2016-07-18] MEDS: SIMVASTATIN 10 MG TABLET PO SCH (22:20)
[2016-07-18] MEDS: SENNA 187 MG TABLET PO SCH (22:20)
[2016-07-18] MEDS: OxyCODONE HCL/ACETAMINOPHEN 5-325 MG TABLET PO PRN (22:44)
[2016-07-19 00:30] VITALS: BP 97/49
[2016-07-19] MEDS: HEPARIN SODIUM,PORCINE 5,000 UNITS/ML VIAL SQ SCH ×4 (00:53→23:35)
[2016-07-19] MEDS: 0.9% SODIUM CHLORIDE 10 ML SYRINGE IVP SCH ×4 (00:54→23:35)
[2016-07-19] MEDS: DOCUSATE SODIUM 283 MG/5 ML MINI-ENEMA PR PRN (05:43)
[2016-07-19] MEDS: OxyCODONE HCL/ACETAMINOPHEN 5-325 MG TABLET PO PRN ×3 (05:49→17:21)
[2016-07-19] MEDS: LEVOTHYROXINE SODIUM 125 MCG TABLET PO SCH (06:00)
[2016-07-19 06:26] VITALS: BP 105/49
[2016-07-19 07:19] VITALS: BP 91/48
[2016-07-19 07:19] LABS: BASOPHILS % (AUTO) 0.7 % (0.0-2.0); EOSINOPHILS % (AUTO) 2.1 % (1.0-6.0); HEMATOCRIT 29.1 % (36-46); HEMOGLOBIN 9.4 g/dL (12.0-16.0); LYMPHOCYTES # (AUTO) 1.7 K/uL (1.0-4.8); LYMPHOCYTES % (AUTO) 25.5 % (22.0-44.0); MEAN CORPUSCULAR HEMOGLOBIN 30.2 pg (26.0-34.0); MEAN CORPUSCULAR HGB CONC 32.3 G/dL (31.0-37.0); MEAN CORPUSCULAR VOLUME 93 fL (80-100); MONOCYTES # (AUTO) 0.6 K/uL (0.1-1.0); MONOCYTES % (AUTO) 8.7 % (2.0-9.0); NEUTROPHILS # (AUTO) 4.1 K/uL (1.8-7.7); PLATELET COUNT (AUTO) 386 K/uL (150-450); RED BLOOD CELL COUNT(AUTO) 3.12 MIL/uL (4.00-5.20); RED CELL DISTRIBUTION WIDTH 15.1 % (11.5-14.5); WHITE BLOOD COUNT (AUTO) 6.5 K/uL (4.5-11.0)
[2016-07-19 07:41] LABS: ALBUMIN 1.7 g/dL (3.4-5.0); ANION GAP 5 mmol/L (8-16); ASPARTATE AMINOTRANSFERASE 9 U/L (15-37); BILIRUBIN,TOTAL 0.1 mg/dL (0.1-1.0); CALCIUM, TOTAL 9.4 mg/dL (8.8-10.5); CARBON DIOXIDE 30 mmol/L (22-29); CHLORIDE 108 mmol/L (98-107); CREATININE 0.69 mg/dL (0.60-1.30); GLOMERULAR FILTR. RATE CALC > 60 mL/min (>60); SODIUM SERUM 143 mmol/L (136-145); TOTAL PROTEIN, SERUM 5.2 g/dL (6.4-8.2); UREA NITROGEN, BLOOD 9 mg/dL (7-18)
[2016-07-19 07:50] LABS: ALANINE AMINOTRANSFERASE 3 U/L (12-78)
[2016-07-19] MEDS: ACETAMINOPHEN 325 MG TABLET PO PRN (08:25)
[2016-07-19] MEDS: ASPIRIN 81 MG CHEWABLE TABLET PO SCH (08:26)
[2016-07-19] MEDS: CARBIDOPA/LEVODOPA 25-100 MG TABLET PO SCH ×3 (08:26→21:04)
[2016-07-19] MEDS ORDERED: DOCUSATE SODIUM 250 MG CAPSULE PO PRN (08:30)
[2016-07-19] MEDS ORDERED: PREGABALIN 50 MG CAPSULE PO SCH (09:00)
[2016-07-19] MEDS ORDERED: MULTIVITAMINS WITH MINERALS, THERAPEUTIC TABLET PO SCH (09:00)
[2016-07-19] MEDS ORDERED: DIVALPROEX SODIUM 500 MG DR TABLET PO SCH (09:00)
[2016-07-19] MEDS: DOCUSATE SODIUM 250 MG CAPSULE PO SCH ×2 (09:45→21:05)
[2016-07-19] MEDS: ONDANSETRON HCL 4 MG TABLET PO PRN (10:17)
[2016-07-19] MEDS ORDERED: OxyCODONE HCL/ACETAMINOPHEN 5-325 MG TABLET PO PRN (12:00)
[2016-07-19 15:00] VITALS: BP 92/51
[2016-07-19] MEDS: CefTRIAXone 1 GM/DEXTROSE 50 ML IV SCH (18:48)
[2016-07-19] MEDS: SENNA 187 MG TABLET PO SCH (21:04)
[2016-07-19] MEDS: SIMVASTATIN 10 MG TABLET PO SCH (21:04)
[2016-07-19] MEDS: MIRTAZAPINE 15 MG TABLET PO SCH (21:04)
[2016-07-20 00:45] VITALS: BP 94/57
[2016-07-20] MEDS: OxyCODONE HCL/ACETAMINOPHEN 5-325 MG TABLET PO PRN ×4 (00:46→20:29)
[2016-07-20] MEDS: DOCUSATE SODIUM 283 MG/5 ML MINI-ENEMA PR PRN (05:21)
[2016-07-20] MEDS: FAMOTIDINE 20 MG TABLET PO SCH (06:18)
[2016-07-20] MEDS: LEVOTHYROXINE SODIUM 125 MCG TABLET PO SCH (06:19)
[2016-07-20 07:13] VITALS: BP 98/63
[2016-07-20] MEDS: 0.9% SODIUM CHLORIDE 10 ML SYRINGE IVP SCH ×2 (08:51→15:47)
[2016-07-20] MEDS: HEPARIN SODIUM,PORCINE 5,000 UNITS/ML VIAL SQ SCH ×2 (08:51→15:47)
[2016-07-20] MEDS: ASPIRIN 81 MG CHEWABLE TABLET PO SCH (08:51)
[2016-07-20] MEDS: DOCUSATE SODIUM 250 MG CAPSULE PO SCH ×2 (08:52→20:24)
[2016-07-20] MEDS: CARBIDOPA/LEVODOPA 25-100 MG TABLET PO SCH ×3 (08:52→20:24)
[2016-07-20] MEDS: DIVALPROEX SODIUM 500 MG DR TABLET PO SCH (12:46)
[2016-07-20] MEDS: PREGABALIN 50 MG CAPSULE PO SCH (12:46)
[2016-07-20] MEDS: MULTIVITAMINS WITH MINERALS, THERAPEUTIC TABLET PO SCH (12:46)
[2016-07-20] MEDS: ACETAMINOPHEN 325 MG TABLET PO PRN (13:20)
[2016-07-20 15:45] VITALS: BP 106/56
[2016-07-20] MEDS: SULFAMETHOX/TRIMETH DS 800-160 MG/TABLET PO SCH (20:23)
[2016-07-20] MEDS: SENNA 187 MG TABLET PO SCH (20:24)
[2016-07-20] MEDS: SIMVASTATIN 10 MG TABLET PO SCH (20:24)
[2016-07-20] MEDS: MIRTAZAPINE 15 MG TABLET PO SCH (20:24)
[2016-07-20] MEDS: ONDANSETRON HCL 4 MG TABLET PO PRN (23:14)
[2016-07-21] MEDS: HEPARIN SODIUM,PORCINE 5,000 UNITS/ML VIAL SQ SCH ×4 (00:02→23:29)
[2016-07-21 00:36] VITALS: BP 101/57
[2016-07-21] MEDS: OxyCODONE HCL/ACETAMINOPHEN 5-325 MG TABLET PO PRN ×3 (00:36→19:49)
[2016-07-21] MEDS: DOCUSATE SODIUM 283 MG/5 ML MINI-ENEMA PR PRN (05:33)
[2016-07-21] MEDS: LEVOTHYROXINE SODIUM 125 MCG TABLET PO SCH (06:03)
[2016-07-21] MEDS: FAMOTIDINE 20 MG TABLET PO SCH (06:03)
[2016-07-21 07:50] VITALS: BP 109/60
[2016-07-21] MEDS: ASPIRIN 81 MG CHEWABLE TABLET PO SCH (08:33)
[2016-07-21] MEDS: CARBIDOPA/LEVODOPA 25-100 MG TABLET PO SCH ×3 (08:33→20:21)
[2016-07-21] MEDS: DOCUSATE SODIUM 250 MG CAPSULE PO SCH ×2 (08:33→20:21)
[2016-07-21] MEDS: SULFAMETHOX/TRIMETH DS 800-160 MG/TABLET PO SCH ×2 (08:33→20:21)
[2016-07-21] MEDS: MULTIVITAMINS WITH MINERALS, THERAPEUTIC TABLET PO SCH (11:45)
[2016-07-21] MEDS: DIVALPROEX SODIUM 500 MG DR TABLET PO SCH (11:45)
[2016-07-21] MEDS: PREGABALIN 50 MG CAPSULE PO SCH (11:45)
[2016-07-21 15:43] VITALS: BP 101/51
[2016-07-21] MEDS: SIMVASTATIN 10 MG TABLET PO SCH (20:21)
[2016-07-21] MEDS: SENNA 187 MG TABLET PO SCH (20:21)
[2016-07-21] MEDS: MIRTAZAPINE 15 MG TABLET PO SCH (20:21)
[2016-07-22 00:04] VITALS: BP 122/66
[2016-07-22] MEDS: OxyCODONE HCL/ACETAMINOPHEN 5-325 MG TABLET PO PRN ×4 (00:04→23:29)
[2016-07-22] MEDS: ACETAMINOPHEN 325 MG TABLET PO PRN (02:02)
[2016-07-22] MEDS: LEVOTHYROXINE SODIUM 125 MCG TABLET PO SCH (06:37)
[2016-07-22] MEDS: FAMOTIDINE 20 MG TABLET PO SCH (06:37)
[2016-07-22 07:13] VITALS: BP 99/54
[2016-07-22] MEDS: HEPARIN SODIUM,PORCINE 5,000 UNITS/ML VIAL SQ SCH ×3 (08:01→23:29)
[2016-07-22] MEDS: CARBIDOPA/LEVODOPA 25-100 MG TABLET PO SCH ×3 (08:02→20:05)
[2016-07-22] MEDS: ASPIRIN 81 MG CHEWABLE TABLET PO SCH (08:02)
[2016-07-22] MEDS: SULFAMETHOX/TRIMETH DS 800-160 MG/TABLET PO SCH ×2 (08:02→20:05)
[2016-07-22] MEDS: DOCUSATE SODIUM 250 MG CAPSULE PO SCH ×2 (08:02→20:05)
[2016-07-22] MEDS: PREGABALIN 50 MG CAPSULE PO SCH (12:12)
[2016-07-22] MEDS: MULTIVITAMINS WITH MINERALS, THERAPEUTIC TABLET PO SCH (12:12)
[2016-07-22] MEDS: DIVALPROEX SODIUM 500 MG DR TABLET PO SCH (12:12)
[2016-07-22 15:23] VITALS: BP 93/56
[2016-07-22] MEDS: SIMVASTATIN 10 MG TABLET PO SCH (20:05)
[2016-07-22] MEDS: MIRTAZAPINE 15 MG TABLET PO SCH (20:05)
[2016-07-22] MEDS: SENNA 187 MG TABLET PO SCH (20:05)
[2016-07-22 23:29] VITALS: BP 99/68
[2016-07-23 03:38] VITALS: BP 94/54
[2016-07-23] MEDS: LEVOTHYROXINE SODIUM 125 MCG TABLET PO SCH (05:46)
[2016-07-23] MEDS: FAMOTIDINE 20 MG TABLET PO SCH (05:46)
[2016-07-23] MEDS: OxyCODONE HCL/ACETAMINOPHEN 5-325 MG TABLET PO PRN ×2 (05:47→20:04)
[2016-07-23 07:07] VITALS: BP 128/75
[2016-07-23] MEDS: ACETAMINOPHEN 325 MG TABLET PO PRN ×2 (07:16→15:26)
[2016-07-23] MEDS: ASPIRIN 81 MG CHEWABLE TABLET PO SCH (08:48)
[2016-07-23] MEDS: SULFAMETHOX/TRIMETH DS 800-160 MG/TABLET PO SCH ×2 (08:48→20:04)
[2016-07-23] MEDS: DOCUSATE SODIUM 250 MG CAPSULE PO SCH ×2 (08:48→20:04)
[2016-07-23] MEDS: CARBIDOPA/LEVODOPA 25-100 MG TABLET PO SCH ×3 (08:48→20:04)
[2016-07-23] MEDS: HEPARIN SODIUM,PORCINE 5,000 UNITS/ML VIAL SQ SCH ×3 (08:48→23:54)
[2016-07-23] MEDS: DIVALPROEX SODIUM 500 MG DR TABLET PO SCH (12:54)
[2016-07-23] MEDS: MULTIVITAMINS WITH MINERALS, THERAPEUTIC TABLET PO SCH (12:54)
[2016-07-23] MEDS: PREGABALIN 50 MG CAPSULE PO SCH (12:54)
[2016-07-23 15:20] VITALS: BP 107/68
[2016-07-23] MEDS: SENNA 187 MG TABLET PO SCH (20:04)
[2016-07-23] MEDS: MIRTAZAPINE 15 MG TABLET PO SCH (20:04)
[2016-07-23] MEDS: SIMVASTATIN 10 MG TABLET PO SCH (20:04)
[2016-07-23 23:59] VITALS: BP 107/57
[2016-07-24] MEDS: OxyCODONE HCL/ACETAMINOPHEN 5-325 MG TABLET PO PRN (00:52)
[2016-07-24] MEDS: LEVOTHYROXINE SODIUM 125 MCG TABLET PO SCH (06:08)
[2016-07-24] MEDS: FAMOTIDINE 20 MG TABLET PO SCH (06:08)
[2016-07-24 07:22] VITALS: BP 109/59
[2016-07-24] MEDS: DOCUSATE SODIUM 250 MG CAPSULE PO SCH ×2 (07:57→21:00)
[2016-07-24] MEDS: ASPIRIN 81 MG CHEWABLE TABLET PO SCH (07:58)
[2016-07-24] MEDS: HEPARIN SODIUM,PORCINE 5,000 UNITS/ML VIAL SQ SCH ×3 (07:58→23:43)
[2016-07-24] MEDS: CARBIDOPA/LEVODOPA 25-100 MG TABLET PO SCH ×3 (07:59→21:47)
[2016-07-24] MEDS: SULFAMETHOX/TRIMETH DS 800-160 MG/TABLET PO SCH ×2 (07:59→21:47)
[2016-07-24] MEDS: MULTIVITAMINS WITH MINERALS, THERAPEUTIC TABLET PO SCH (13:03)
[2016-07-24] MEDS: DIVALPROEX SODIUM 500 MG DR TABLET PO SCH (13:03)
[2016-07-24] MEDS: PREGABALIN 50 MG CAPSULE PO SCH (13:03)
[2016-07-24] MEDS: ACETAMINOPHEN 325 MG TABLET PO PRN (15:44)
[2016-07-24 15:45] VITALS: BP 106/65
[2016-07-24] MEDS: SENNA 187 MG TABLET PO SCH (21:00)
[2016-07-24] MEDS: SIMVASTATIN 10 MG TABLET PO SCH (21:47)
[2016-07-24] MEDS: MIRTAZAPINE 15 MG TABLET PO SCH (21:47)
[2016-07-25 00:38] VITALS: BP 110/62
[2016-07-25] MEDS: OxyCODONE HCL/ACETAMINOPHEN 5-325 MG TABLET PO PRN ×2 (01:16→15:59)
[2016-07-25] MEDS: LEVOTHYROXINE SODIUM 125 MCG TABLET PO SCH (05:43)
[2016-07-25] MEDS: FAMOTIDINE 20 MG TABLET PO SCH (05:43)
[2016-07-25 07:14] VITALS: BP 109/48
[2016-07-25] MEDS: DOCUSATE SODIUM 250 MG CAPSULE PO SCH (09:00)
[2016-07-25] MEDS: ASPIRIN 81 MG CHEWABLE TABLET PO SCH (09:04)
[2016-07-25] MEDS: HEPARIN SODIUM,PORCINE 5,000 UNITS/ML VIAL SQ SCH ×3 (09:04→23:36)
[2016-07-25] MEDS: SULFAMETHOX/TRIMETH DS 800-160 MG/TABLET PO SCH (09:05)
[2016-07-25] MEDS: CARBIDOPA/LEVODOPA 25-100 MG TABLET PO SCH ×3 (09:05→20:44)
[2016-07-25] MEDS: MULTIVITAMINS WITH MINERALS, THERAPEUTIC TABLET PO SCH (12:51)
[2016-07-25] MEDS: DIVALPROEX SODIUM 500 MG DR TABLET PO SCH (12:51)
[2016-07-25] MEDS: PREGABALIN 50 MG CAPSULE PO SCH (12:51)
[2016-07-25] MEDS: ACETAMINOPHEN 325 MG TABLET PO PRN (13:30)
[2016-07-25 15:40] VITALS: BP 108/61
[2016-07-25] MEDS: MIRTAZAPINE 15 MG TABLET PO SCH (20:44)
[2016-07-25] MEDS: SIMVASTATIN 10 MG TABLET PO SCH (20:44)
[2016-07-26 00:13] VITALS: BP 101/52
[2016-07-26] MEDS: FAMOTIDINE 20 MG TABLET PO SCH (05:44)
[2016-07-26] MEDS: LEVOTHYROXINE SODIUM 125 MCG TABLET PO SCH (05:44)
[2016-07-26 07:54] VITALS: BP 118/70
[2016-07-26] MEDS: MetroNIDAZOLE 500 MG TABLET PO SCH ×3 (08:45→20:57)
[2016-07-26] MEDS: ASPIRIN 81 MG CHEWABLE TABLET PO SCH (08:45)
[2016-07-26] MEDS: HEPARIN SODIUM,PORCINE 5,000 UNITS/ML VIAL SQ SCH ×3 (08:45→23:29)
[2016-07-26] MEDS: CARBIDOPA/LEVODOPA 25-100 MG TABLET PO SCH ×3 (08:45→20:57)
[2016-07-26] MEDS: ACETAMINOPHEN 325 MG TABLET PO PRN ×3 (08:54→23:29)
[2016-07-26] MEDS: PREGABALIN 50 MG CAPSULE PO SCH (12:12)
[2016-07-26] MEDS: DIVALPROEX SODIUM 500 MG DR TABLET PO SCH (12:12)
[2016-07-26] MEDS: MULTIVITAMINS WITH MINERALS, THERAPEUTIC TABLET PO SCH (12:12)
[2016-07-26 15:20] VITALS: BP 120/66
[2016-07-26 17:24] LABS: APPEARANCE,URINE CLEAR (CLEAR); GLUCOSE, URINE (UA) NEGATIVE (NEGATIVE); KETONES,URINE NEGATIVE (NEGATIVE); LEUKOCYTE ESTERASE ,URINE NEGATIVE (NEGATIVE); OCCULT BLOOD,URINE NEGATIVE (NEGATIVE); PROTEIN,URINE NEGATIVE (NEGATIVE)
[2016-07-26 17:48] LABS: WBC,URINE 0-2 /HPF (0-5)
[2016-07-26 17:49] LABS: RBC,URINE None Seen /HPF (0-2)
[2016-07-26 17:50] LABS: SQUAMOUS EPITHELIAL CELL,UR Rare /LPF (None Seen)
[2016-07-26] MEDS: SIMVASTATIN 10 MG TABLET PO SCH (20:57)
[2016-07-26] MEDS: MIRTAZAPINE 15 MG TABLET PO SCH (20:57)
[2016-07-26 23:29] VITALS: BP 103/58
[2016-07-27] MEDS: LEVOTHYROXINE SODIUM 125 MCG TABLET PO SCH (05:33)
[2016-07-27] MEDS: FAMOTIDINE 20 MG TABLET PO SCH (05:33)
[2016-07-27] MEDS: ACETAMINOPHEN 325 MG TABLET PO PRN ×4 (05:33→20:14)
[2016-07-27 07:40] VITALS: BP 156/89
[2016-07-27] MEDS: ASPIRIN 81 MG CHEWABLE TABLET PO SCH (10:03)
[2016-07-27] MEDS: MetroNIDAZOLE 500 MG TABLET PO SCH ×3 (10:03→20:14)
[2016-07-27] MEDS: CARBIDOPA/LEVODOPA 25-100 MG TABLET PO SCH ×3 (10:03→20:14)
[2016-07-27] MEDS: HEPARIN SODIUM,PORCINE 5,000 UNITS/ML VIAL SQ SCH ×2 (10:04→16:15)
[2016-07-27] MEDS: PREGABALIN 50 MG CAPSULE PO SCH (12:56)
[2016-07-27] MEDS: DIVALPROEX SODIUM 500 MG DR TABLET PO SCH (12:56)
[2016-07-27] MEDS: MULTIVITAMINS WITH MINERALS, THERAPEUTIC TABLET PO SCH (12:56)
[2016-07-27 13:00] VITALS: BP 114/74
[2016-07-27 15:30] VITALS: BP 130/72
[2016-07-27] MEDS: MIRTAZAPINE 15 MG TABLET PO SCH (20:14)
[2016-07-27] MEDS: SIMVASTATIN 10 MG TABLET PO SCH (20:14)
[2016-07-28 00:20] VITALS: BP 106/62
[2016-07-28] MEDS: HEPARIN SODIUM,PORCINE 5,000 UNITS/ML VIAL SQ SCH ×4 (00:20→23:27)
[2016-07-28] MEDS: ACETAMINOPHEN 325 MG TABLET PO PRN ×4 (00:20→23:35)
[2016-07-28] MEDS: LEVOTHYROXINE SODIUM 125 MCG TABLET PO SCH (05:40)
[2016-07-28] MEDS: FAMOTIDINE 20 MG TABLET PO SCH (05:41)
[2016-07-28 07:27] VITALS: BP 148/74
[2016-07-28] MEDS: CARBIDOPA/LEVODOPA 25-100 MG TABLET PO SCH ×3 (08:04→21:06)
[2016-07-28] MEDS: MetroNIDAZOLE 500 MG TABLET PO SCH ×3 (08:04→21:06)
[2016-07-28] MEDS: ASPIRIN 81 MG CHEWABLE TABLET PO SCH (08:04)
[2016-07-28] MEDS: MULTIVITAMINS WITH MINERALS, THERAPEUTIC TABLET PO SCH (12:30)
[2016-07-28] MEDS: PREGABALIN 50 MG CAPSULE PO SCH (12:30)
[2016-07-28] MEDS: DIVALPROEX SODIUM 500 MG DR TABLET PO SCH (12:30)
[2016-07-28 15:10] VITALS: BP 136/82
[2016-07-28] MEDS: SIMVASTATIN 10 MG TABLET PO SCH (21:06)
[2016-07-28] MEDS: MIRTAZAPINE 15 MG TABLET PO SCH (21:06)
[2016-07-28 23:35] VITALS: BP 97/52
[2016-07-29] MEDS: FAMOTIDINE 20 MG TABLET PO SCH (06:21)
[2016-07-29] MEDS: LEVOTHYROXINE SODIUM 125 MCG TABLET PO SCH (06:21)
[2016-07-29] MEDS: ACETAMINOPHEN 325 MG TABLET PO PRN ×4 (06:27→22:10)
[2016-07-29 07:15] VITALS: BP 162/99
[2016-07-29] MEDS: HEPARIN SODIUM,PORCINE 5,000 UNITS/ML VIAL SQ SCH ×3 (08:35→23:47)
[2016-07-29] MEDS: ASPIRIN 81 MG CHEWABLE TABLET PO SCH (08:35)
[2016-07-29] MEDS: MetroNIDAZOLE 500 MG TABLET PO SCH ×3 (08:35→20:15)
[2016-07-29] MEDS: CARBIDOPA/LEVODOPA 25-100 MG TABLET PO SCH ×3 (08:35→20:15)
[2016-07-29 09:17] VITALS: BP 121/67
[2016-07-29] MEDS: PREGABALIN 50 MG CAPSULE PO SCH (12:39)
[2016-07-29] MEDS: DIVALPROEX SODIUM 500 MG DR TABLET PO SCH (12:39)
[2016-07-29] MEDS: MULTIVITAMINS WITH MINERALS, THERAPEUTIC TABLET PO SCH (12:39)
[2016-07-29 15:10] VITALS: BP 96/60
[2016-07-29] MEDS: SIMVASTATIN 10 MG TABLET PO SCH (20:15)
[2016-07-29] MEDS: MIRTAZAPINE 15 MG TABLET PO SCH (20:15)
[2016-07-29 21:35] LABS: APPEARANCE,URINE CLOUDY (CLEAR); GLUCOSE, URINE (UA) NEGATIVE (NEGATIVE); KETONES,URINE NEGATIVE (NEGATIVE); OCCULT BLOOD,URINE SMALL (NEGATIVE); PH,URINE 6.5 (5.0-8.0); PROTEIN,URINE NEGATIVE (NEGATIVE)
[2016-07-29 21:38] LABS: ADD UA MICROSCOPIC YES; LEUKOCYTE ESTERASE ,URINE TRACE (NEGATIVE)
[2016-07-29 21:39] LABS: SQUAMOUS EPITHELIAL CELL,UR Few /LPF (None Seen)
[2016-07-29 23:54] VITALS: BP 94/46
[2016-07-30 00:50] VITALS: BP 107/55
[2016-07-30] MEDS: ACETAMINOPHEN 325 MG TABLET PO PRN ×4 (02:15→21:30)
[2016-07-30] MEDS: FAMOTIDINE 20 MG TABLET PO SCH (06:18)
[2016-07-30] MEDS: LEVOTHYROXINE SODIUM 125 MCG TABLET PO SCH (06:18)
[2016-07-30 08:00] VITALS: BP 133/78
[2016-07-30] MEDS: MetroNIDAZOLE 500 MG TABLET PO SCH ×3 (08:13→21:30)
[2016-07-30] MEDS: HEPARIN SODIUM,PORCINE 5,000 UNITS/ML VIAL SQ SCH ×3 (08:13→23:24)
[2016-07-30] MEDS: ASPIRIN 81 MG CHEWABLE TABLET PO SCH (08:13)
[2016-07-30] MEDS: CARBIDOPA/LEVODOPA 25-100 MG TABLET PO SCH ×3 (08:13→21:30)
[2016-07-30] MEDS: PREGABALIN 50 MG CAPSULE PO SCH (11:58)
[2016-07-30] MEDS: MULTIVITAMINS WITH MINERALS, THERAPEUTIC TABLET PO SCH (11:58)
[2016-07-30] MEDS: DIVALPROEX SODIUM 500 MG DR TABLET PO SCH (11:58)
[2016-07-30 15:05] VITALS: BP 128/75
[2016-07-30] MEDS ORDERED: METR500 PO (19:28)
[2016-07-30] MEDS ORDERED: LACT1POW8 MC (19:28)
[2016-07-30] MEDS ORDERED: ASPI-556 PO (19:28)
[2016-07-30] MEDS ORDERED: FAMO20 PO (19:28)
[2016-07-30] MEDS: MIRTAZAPINE 15 MG TABLET PO SCH (21:30)
[2016-07-30] MEDS: SIMVASTATIN 10 MG TABLET PO SCH (21:30)
[2016-07-30] MEDS: LACTOBACILLUS ACIDOPHILUS/BULGARICUS GRANULES PACKET PO SCH (21:30)
[2016-07-30 23:23] VITALS: BP 98/63
[2016-07-31] MEDS: ACETAMINOPHEN 325 MG TABLET PO PRN ×4 (01:35→18:49)
[2016-07-31] MEDS: LEVOTHYROXINE SODIUM 125 MCG TABLET PO SCH (06:23)
[2016-07-31] MEDS: FAMOTIDINE 20 MG TABLET PO SCH (06:23)
[2016-07-31 06:34] LABS: BASOPHILS % (AUTO) 1.2 % (0.0-2.0); EOSINOPHILS % (AUTO) 2.9 % (1.0-6.0); HEMATOCRIT 32.3 % (36-46); HEMOGLOBIN 10.4 g/dL (12.0-16.0); LYMPHOCYTES % (AUTO) 36.4 % (22.0-44.0); MEAN CORPUSCULAR HEMOGLOBIN 30.1 pg (26.0-34.0); MEAN CORPUSCULAR HGB CONC 32.1 G/dL (31.0-37.0); MEAN CORPUSCULAR VOLUME 94 fL (80-100); MONOCYTES # (AUTO) 0.6 K/uL (0.1-1.0); MONOCYTES % (AUTO) 10.1 % (2.0-9.0); NEUTROPHILS # (AUTO) 2.8 K/uL (1.8-7.7); NEUTROPHILS % (AUTO) 49.4 % (40.0-70.0); PLATELET COUNT (AUTO) 320 K/uL (150-450); RED BLOOD CELL COUNT(AUTO) 3.45 MIL/uL (4.00-5.20); RED CELL DISTRIBUTION WIDTH 17.5 % (11.5-14.5); WHITE BLOOD COUNT (AUTO) 5.6 K/uL (4.5-11.0)
[2016-07-31 07:21] LABS: ANION GAP 7 mmol/L (8-16); CALCIUM, TOTAL 9.6 mg/dL (8.8-10.5); CARBON DIOXIDE 26 mmol/L (22-29); CHLORIDE 106 mmol/L (98-107); CREATININE 0.71 mg/dL (0.60-1.30); GLOMERULAR FILTR. RATE CALC > 60 mL/min (>60); POTASSIUM 4.9 mmol/L (3.5-5.1); SODIUM SERUM 139 mmol/L (136-145); UREA NITROGEN, BLOOD 28 mg/dL (7-18)
[2016-07-31 07:24] VITALS: BP 118/74
[2016-07-31] MEDS: MetroNIDAZOLE 500 MG TABLET PO SCH ×3 (08:10→21:28)
[2016-07-31] MEDS: CARBIDOPA/LEVODOPA 25-100 MG TABLET PO SCH ×3 (08:10→21:29)
[2016-07-31] MEDS: HEPARIN SODIUM,PORCINE 5,000 UNITS/ML VIAL SQ SCH ×2 (08:10→16:05)
[2016-07-31] MEDS: ASPIRIN 81 MG CHEWABLE TABLET PO SCH (08:10)
[2016-07-31] MEDS: LACTOBACILLUS ACIDOPHILUS/BULGARICUS GRANULES PACKET PO SCH ×2 (08:10→21:28)
[2016-07-31 08:36] LABS: RBC MORPHOLOGY COMMENT ABNORMAL RBC MORPH
[2016-07-31] MEDS: DIVALPROEX SODIUM 500 MG DR TABLET PO SCH (12:15)
[2016-07-31] MEDS: PREGABALIN 50 MG CAPSULE PO SCH (12:15)
[2016-07-31] MEDS: MULTIVITAMINS WITH MINERALS, THERAPEUTIC TABLET PO SCH (12:15)
[2016-07-31 15:50] VITALS: BP 108/63
[2016-07-31 16:43] LABS: APPEARANCE,URINE CLEAR (CLEAR); GLUCOSE, URINE (UA) NEGATIVE (NEGATIVE); KETONES,URINE NEGATIVE (NEGATIVE); LEUKOCYTE ESTERASE ,URINE TRACE (NEGATIVE); OCCULT BLOOD,URINE NEGATIVE (NEGATIVE); PH,URINE 6.5 (5.0-8.0); PROTEIN,URINE NEGATIVE (NEGATIVE)
[2016-07-31 16:46] LABS: ADD UA MICROSCOPIC YES
[2016-07-31 17:14] LABS: RBC,URINE 0-2 /HPF (0-2); SQUAMOUS EPITHELIAL CELL,UR Few /LPF (None Seen)
[2016-07-31] MEDS: SIMVASTATIN 10 MG TABLET PO SCH (21:28)
[2016-07-31] MEDS: MIRTAZAPINE 15 MG TABLET PO SCH (21:28)
[2016-08-01] MEDS: HEPARIN SODIUM,PORCINE 5,000 UNITS/ML VIAL SQ SCH ×3 (00:04→16:34)
[2016-08-01 00:05] VITALS: BP 126/58
[2016-08-01] MEDS: ACETAMINOPHEN 325 MG TABLET PO PRN ×5 (00:05→21:50)
[2016-08-01] MEDS: LEVOTHYROXINE SODIUM 125 MCG TABLET PO SCH (05:48)
[2016-08-01] MEDS: FAMOTIDINE 20 MG TABLET PO SCH (05:48)
[2016-08-01 07:15] VITALS: BP 130/80
[2016-08-01] MEDS: LACTOBACILLUS ACIDOPHILUS/BULGARICUS GRANULES PACKET PO SCH ×2 (08:25→21:50)
[2016-08-01] MEDS: CARBIDOPA/LEVODOPA 25-100 MG TABLET PO SCH ×3 (08:25→21:50)
[2016-08-01] MEDS: MetroNIDAZOLE 500 MG TABLET PO SCH ×3 (08:25→21:50)
[2016-08-01] MEDS: ASPIRIN 81 MG CHEWABLE TABLET PO SCH (08:25)
[2016-08-01] MEDS: MULTIVITAMINS WITH MINERALS, THERAPEUTIC TABLET PO SCH (12:20)
[2016-08-01] MEDS: DIVALPROEX SODIUM 500 MG DR TABLET PO SCH (12:21)
[2016-08-01] MEDS: PREGABALIN 50 MG CAPSULE PO SCH (12:21)
[2016-08-01 15:33] VITALS: BP 148/81
[2016-08-01] MEDS: MIRTAZAPINE 15 MG TABLET PO SCH (21:50)
[2016-08-01] MEDS: SIMVASTATIN 10 MG TABLET PO SCH (21:50)
[2016-08-01] MEDS: OXYBUTYNIN CHLORIDE 5 MG TABLET PO SCH (21:51)
[2016-08-02] VITALS: BP 104/57
[2016-08-02] MEDS: HEPARIN SODIUM,PORCINE 5,000 UNITS/ML VIAL SQ SCH ×4 (00:31→23:49)
[2016-08-02] MEDS: ACETAMINOPHEN 325 MG TABLET PO PRN ×4 (02:44→20:37)
[2016-08-02] MEDS: FAMOTIDINE 20 MG TABLET PO SCH (05:59)
[2016-08-02] MEDS: LEVOTHYROXINE SODIUM 125 MCG TABLET PO SCH (05:59)
[2016-08-02 07:10] VITALS: BP 124/78
[2016-08-02] MEDS: ASPIRIN 81 MG CHEWABLE TABLET PO SCH (08:21)
[2016-08-02] MEDS: LACTOBACILLUS ACIDOPHILUS/BULGARICUS GRANULES PACKET PO SCH ×2 (08:21→20:34)
[2016-08-02] MEDS: MetroNIDAZOLE 500 MG TABLET PO SCH ×3 (08:21→20:34)
[2016-08-02] MEDS: CARBIDOPA/LEVODOPA 25-100 MG TABLET PO SCH ×3 (08:21→20:34)
[2016-08-02] MEDS ORDERED: DICLOFENAC SODIUM 1% 100 GM GEL [4GM] TP SCH (11:30)
[2016-08-02] MEDS: PREGABALIN 50 MG CAPSULE PO SCH (13:06)
[2016-08-02] MEDS: DIVALPROEX SODIUM 500 MG DR TABLET PO SCH (13:06)
[2016-08-02] MEDS: MULTIVITAMINS WITH MINERALS, THERAPEUTIC TABLET PO SCH (13:06)
[2016-08-02 13:36] LABS: GLUCOSE, URINE (UA) NEGATIVE (NEGATIVE); KETONES,URINE NEGATIVE (NEGATIVE); LEUKOCYTE ESTERASE ,URINE SMALL (NEGATIVE); OCCULT BLOOD,URINE NEGATIVE (NEGATIVE); PH,URINE 5.5 (5.0-8.0); PROTEIN,URINE NEGATIVE (NEGATIVE)
[2016-08-02 13:43] LABS: APPEARANCE,URINE HAZY (CLEAR)
[2016-08-02 13:45] LABS: RBC,URINE None Seen /HPF (0-2); SQUAMOUS EPITHELIAL CELL,UR Few /LPF (None Seen)
[2016-08-02 15:40] VITALS: BP 133/73
[2016-08-02] MEDS: SIMVASTATIN 10 MG TABLET PO SCH (20:34)
[2016-08-02] MEDS: MIRTAZAPINE 15 MG TABLET PO SCH (20:34)
[2016-08-02] MEDS: OXYBUTYNIN CHLORIDE 5 MG TABLET PO SCH (20:34)
[2016-08-03] VITALS: BP 125/81
[2016-08-03] MEDS: ACETAMINOPHEN 325 MG TABLET PO PRN ×4 (04:01→20:30)
[2016-08-03] MEDS: FAMOTIDINE 20 MG TABLET PO SCH (06:18)
[2016-08-03] MEDS: LEVOTHYROXINE SODIUM 125 MCG TABLET PO SCH (06:18)
[2016-08-03 07:59] VITALS: BP 110/58
[2016-08-03] MEDS: LACTOBACILLUS ACIDOPHILUS/BULGARICUS GRANULES PACKET PO SCH ×2 (08:51→20:30)
[2016-08-03] MEDS: ASPIRIN 81 MG CHEWABLE TABLET PO SCH (08:51)
[2016-08-03] MEDS: CARBIDOPA/LEVODOPA 25-100 MG TABLET PO SCH ×3 (08:51→20:30)
[2016-08-03] MEDS: MetroNIDAZOLE 500 MG TABLET PO SCH ×3 (08:51→20:30)
[2016-08-03] MEDS: HEPARIN SODIUM,PORCINE 5,000 UNITS/ML VIAL SQ SCH ×3 (08:51→23:57)
[2016-08-03] MEDS: MULTIVITAMINS WITH MINERALS, THERAPEUTIC TABLET PO SCH (12:35)
[2016-08-03] MEDS: DIVALPROEX SODIUM 500 MG DR TABLET PO SCH (12:35)
[2016-08-03] MEDS: PREGABALIN 50 MG CAPSULE PO SCH (12:35)
[2016-08-03 15:50] VITALS: BP 115/72
[2016-08-03] MEDS: SIMVASTATIN 10 MG TABLET PO SCH (20:30)
[2016-08-03] MEDS: MIRTAZAPINE 15 MG TABLET PO SCH (20:30)
[2016-08-03] MEDS: OXYBUTYNIN CHLORIDE 5 MG TABLET PO SCH (20:30)
[2016-08-04 00:05] VITALS: BP 102/50
[2016-08-04] MEDS: FAMOTIDINE 20 MG TABLET PO SCH (06:21)
[2016-08-04] MEDS: LEVOTHYROXINE SODIUM 125 MCG TABLET PO SCH (06:21)
[2016-08-04 07:48] VITALS: BP 128/68
[2016-08-04] MEDS: CARBIDOPA/LEVODOPA 25-100 MG TABLET PO SCH ×3 (09:05→20:00)
[2016-08-04] MEDS: MetroNIDAZOLE 500 MG TABLET PO SCH ×3 (09:05→20:00)
[2016-08-04] MEDS: LACTOBACILLUS ACIDOPHILUS/BULGARICUS GRANULES PACKET PO SCH ×2 (09:05→20:00)
[2016-08-04] MEDS: HEPARIN SODIUM,PORCINE 5,000 UNITS/ML VIAL SQ SCH ×3 (09:05→23:15)
[2016-08-04] MEDS: ASPIRIN 81 MG CHEWABLE TABLET PO SCH (09:05)
[2016-08-04] MEDS: ACETAMINOPHEN 325 MG TABLET PO PRN ×2 (09:06→23:31)
[2016-08-04] MEDS: MULTIVITAMINS WITH MINERALS, THERAPEUTIC TABLET PO SCH (13:45)
[2016-08-04] MEDS: DIVALPROEX SODIUM 500 MG DR TABLET PO SCH (13:45)
[2016-08-04] MEDS: PREGABALIN 50 MG CAPSULE PO SCH (13:45)
[2016-08-04 15:35] VITALS: BP 101/58
[2016-08-04] MEDS: MIRTAZAPINE 15 MG TABLET PO SCH (20:00)
[2016-08-04] MEDS: OXYBUTYNIN CHLORIDE 5 MG TABLET PO SCH (20:00)
[2016-08-04] MEDS: SIMVASTATIN 10 MG TABLET PO SCH (20:00)
[2016-08-04 23:31] VITALS: BP 103/56
[2016-08-05] MEDS: LEVOTHYROXINE SODIUM 125 MCG TABLET PO SCH (05:25)
[2016-08-05] MEDS: FAMOTIDINE 20 MG TABLET PO SCH (05:25)
[2016-08-05 07:45] VITALS: BP 128/97
[2016-08-05] MEDS: LACTOBACILLUS ACIDOPHILUS/BULGARICUS GRANULES PACKET PO SCH ×2 (08:20→20:44)
[2016-08-05] MEDS: CARBIDOPA/LEVODOPA 25-100 MG TABLET PO SCH ×3 (08:20→20:45)
[2016-08-05] MEDS: MetroNIDAZOLE 500 MG TABLET PO SCH ×3 (08:20→20:44)
[2016-08-05] MEDS: ASPIRIN 81 MG CHEWABLE TABLET PO SCH (08:20)
[2016-08-05] MEDS: HEPARIN SODIUM,PORCINE 5,000 UNITS/ML VIAL SQ SCH ×2 (08:20→15:46)
[2016-08-05] MEDS ORDERED: ACID1GRA3 PO (11:07)
[2016-08-05] MEDS: ACETAMINOPHEN 325 MG TABLET PO PRN ×2 (11:21→18:07)
[2016-08-05] MEDS: DIVALPROEX SODIUM 500 MG DR TABLET PO SCH (12:33)
[2016-08-05] MEDS: MULTIVITAMINS WITH MINERALS, THERAPEUTIC TABLET PO SCH (12:33)
[2016-08-05] MEDS: SULFAMETHOX/TRIMETH DS 800-160 MG/TABLET PO SCH ×2 (12:33→20:44)
[2016-08-05] MEDS: PREGABALIN 50 MG CAPSULE PO SCH (12:34)
[2016-08-05 15:50] VITALS: BP 112/71
[2016-08-05] MEDS: SIMVASTATIN 10 MG TABLET PO SCH (20:44)
[2016-08-05] MEDS: MIRTAZAPINE 15 MG TABLET PO SCH (20:44)
[2016-08-05] MEDS: OXYBUTYNIN CHLORIDE 5 MG TABLET PO SCH (20:45)
[2016-08-05] MEDS ORDERED: SULF1TAB42 PO (22:24)
[2016-08-06] MEDS: HEPARIN SODIUM,PORCINE 5,000 UNITS/ML VIAL SQ SCH ×4 (00:21→23:45)
[2016-08-06 00:27] VITALS: BP 132/50
[2016-08-06] MEDS: ACETAMINOPHEN 325 MG TABLET PO PRN ×4 (03:23→21:24)
[2016-08-06] MEDS: LEVOTHYROXINE SODIUM 125 MCG TABLET PO SCH (06:07)
[2016-08-06] MEDS: FAMOTIDINE 20 MG TABLET PO SCH (06:07)
[2016-08-06 07:55] VITALS: BP 120/77
[2016-08-06] MEDS: CARBIDOPA/LEVODOPA 25-100 MG TABLET PO SCH ×3 (08:31→21:23)
[2016-08-06] MEDS: LACTOBACILLUS ACIDOPHILUS/BULGARICUS GRANULES PACKET PO SCH ×2 (08:31→21:22)
[2016-08-06] MEDS: MetroNIDAZOLE 500 MG TABLET PO SCH ×3 (08:31→21:22)
[2016-08-06] MEDS: ASPIRIN 81 MG CHEWABLE TABLET PO SCH (08:32)
[2016-08-06] MEDS: SULFAMETHOX/TRIMETH DS 800-160 MG/TABLET PO SCH ×2 (08:32→21:22)
[2016-08-06 10:16] LABS: BASOPHILS % (AUTO) 0.7 % (0.0-2.0); EOSINOPHILS % (AUTO) 2.4 % (1.0-6.0); HEMATOCRIT 38.3 % (36-46); HEMOGLOBIN 12.4 g/dL (12.0-16.0); LYMPHOCYTES # (AUTO) 1.3 K/uL (1.0-4.8); LYMPHOCYTES % (AUTO) 26.3 % (22.0-44.0); MEAN CORPUSCULAR HEMOGLOBIN 30.4 pg (26.0-34.0); MEAN CORPUSCULAR HGB CONC 32.3 G/dL (31.0-37.0); MEAN CORPUSCULAR VOLUME 94 fL (80-100); MONOCYTES # (AUTO) 0.4 K/uL (0.1-1.0); MONOCYTES % (AUTO) 8.7 % (2.0-9.0); NEUTROPHILS % (AUTO) 61.9 % (40.0-70.0); PLATELET COUNT (AUTO) 473 K/uL (150-450); RED BLOOD CELL COUNT(AUTO) 4.08 MIL/uL (4.00-5.20); RED CELL DISTRIBUTION WIDTH 17.3 % (11.5-14.5); WHITE BLOOD COUNT (AUTO) 4.8 K/uL (4.5-11.0)
[2016-08-06 10:41] LABS: ANION GAP 6 mmol/L (8-16); CARBON DIOXIDE 30 mmol/L (22-29); CHLORIDE 104 mmol/L (98-107); CREATININE 0.87 mg/dL (0.60-1.30); GLOMERULAR FILTR. RATE CALC > 60 mL/min (>60); POTASSIUM 4.3 mmol/L (3.5-5.1); SODIUM SERUM 140 mmol/L (136-145); THYROID STIMULATING HORMONE 0.13 uIU/mL (0.36-3.74); UREA NITROGEN, BLOOD 26 mg/dL (7-18)
[2016-08-06 10:53] LABS: RBC MORPHOLOGY COMMENT ABNORMAL RBC MORPH
[2016-08-06] MEDS: PREGABALIN 50 MG CAPSULE PO SCH (11:43)
[2016-08-06] MEDS: DIVALPROEX SODIUM 500 MG DR TABLET PO SCH (11:43)
[2016-08-06] MEDS: MULTIVITAMINS WITH MINERALS, THERAPEUTIC TABLET PO SCH (11:43)
[2016-08-06 12:22] LABS: GLUCOSE,POINT OF CARE 103 MG/DL (70-110)
[2016-08-06 16:58] VITALS: BP 121/65
[2016-08-06] MEDS: MIRTAZAPINE 15 MG TABLET PO SCH (21:22)
[2016-08-06] MEDS: SIMVASTATIN 10 MG TABLET PO SCH (21:23)
[2016-08-06] MEDS: OXYBUTYNIN CHLORIDE 5 MG TABLET PO SCH (21:23)
[2016-08-06 23:56] VITALS: BP 113/79
[2016-08-07] MEDS: ACETAMINOPHEN 325 MG TABLET PO PRN ×4 (04:41→20:54)
[2016-08-07] MEDS: FAMOTIDINE 20 MG TABLET PO SCH (05:30)
[2016-08-07] MEDS: LEVOTHYROXINE SODIUM 125 MCG TABLET PO SCH (05:30)
[2016-08-07 05:52] LABS: GLUCOSE,POINT OF CARE 82 MG/DL (70-110)
[2016-08-07 07:48] VITALS: BP 99/57
[2016-08-07] MEDS: LACTOBACILLUS ACIDOPHILUS/BULGARICUS GRANULES PACKET PO SCH ×2 (09:50→20:47)
[2016-08-07] MEDS: ASPIRIN 81 MG CHEWABLE TABLET PO SCH (09:50)
[2016-08-07] MEDS: MetroNIDAZOLE 500 MG TABLET PO SCH ×3 (09:50→20:46)
[2016-08-07] MEDS: CARBIDOPA/LEVODOPA 25-100 MG TABLET PO SCH ×3 (09:50→20:47)
[2016-08-07] MEDS: SULFAMETHOX/TRIMETH DS 800-160 MG/TABLET PO SCH ×2 (09:50→20:46)
[2016-08-07] MEDS: HEPARIN SODIUM,PORCINE 5,000 UNITS/ML VIAL SQ SCH ×2 (09:50→16:14)
[2016-08-07] MEDS: DIVALPROEX SODIUM 500 MG DR TABLET PO SCH (13:34)
[2016-08-07] MEDS: MULTIVITAMINS WITH MINERALS, THERAPEUTIC TABLET PO SCH (13:34)
[2016-08-07 16:15] VITALS: BP 124/85
[2016-08-07 17:48] LABS: GLUCOSE,POINT OF CARE 116 MG/DL (70-110)
[2016-08-07 17:48] LABS: GLUCOSE,POINT OF CARE 120 MG/DL (70-110)
[2016-08-07] MEDS: SIMVASTATIN 10 MG TABLET PO SCH (20:46)
[2016-08-07] MEDS: OXYBUTYNIN CHLORIDE 5 MG TABLET PO SCH (20:46)
[2016-08-07] MEDS: MIRTAZAPINE 15 MG TABLET PO SCH (20:47)
[2016-08-07] MEDS: PREGABALIN 50 MG CAPSULE PO SCH (20:47)
[2016-08-08 00:30] VITALS: BP 101/50
[2016-08-08] MEDS: HEPARIN SODIUM,PORCINE 5,000 UNITS/ML VIAL SQ SCH ×3 (00:55→15:47)
[2016-08-08] MEDS: ACETAMINOPHEN 325 MG TABLET PO PRN ×3 (05:08→20:19)
[2016-08-08] MEDS: FAMOTIDINE 20 MG TABLET PO SCH (06:10)
[2016-08-08] MEDS: LEVOTHYROXINE SODIUM 112 MCG TABLET PO SCH (06:10)
[2016-08-08 07:42] VITALS: BP 93/70
[2016-08-08] MEDS: MetroNIDAZOLE 500 MG TABLET PO SCH ×3 (08:52→20:17)
[2016-08-08] MEDS: LACTOBACILLUS ACIDOPHILUS/BULGARICUS GRANULES PACKET PO SCH ×3 (08:52→20:17)
[2016-08-08] MEDS: ASPIRIN 81 MG CHEWABLE TABLET PO SCH (08:52)
[2016-08-08] MEDS: CARBIDOPA/LEVODOPA 25-100 MG TABLET PO SCH ×3 (08:52→20:17)
[2016-08-08] MEDS: SULFAMETHOX/TRIMETH DS 800-160 MG/TABLET PO SCH ×2 (08:52→20:17)
[2016-08-08 10:57] LABS: ANION GAP 10 mmol/L (8-16); CALCIUM, TOTAL 9.8 mg/dL (8.8-10.5); CARBON DIOXIDE 26 mmol/L (22-29); CHLORIDE 104 mmol/L (98-107); CREATININE 0.78 mg/dL (0.60-1.30); GLOMERULAR FILTR. RATE CALC > 60 mL/min (>60); POTASSIUM 4.7 mmol/L (3.5-5.1); SODIUM SERUM 140 mmol/L (136-145); UREA NITROGEN, BLOOD 25 mg/dL (7-18)
[2016-08-08] MEDS: DIVALPROEX SODIUM 500 MG DR TABLET PO SCH (12:09)
[2016-08-08] MEDS: MULTIVITAMINS WITH MINERALS, THERAPEUTIC TABLET PO SCH (12:09)
[2016-08-08 12:32] LABS: GLUCOSE,POINT OF CARE 98 MG/DL (70-110)
[2016-08-08 15:30] VITALS: BP 97/54
[2016-08-08 18:07] LABS: GLUCOSE,POINT OF CARE 112 MG/DL (70-110)
[2016-08-08] MEDS: SIMVASTATIN 10 MG TABLET PO SCH (20:17)
[2016-08-08] MEDS: OXYBUTYNIN CHLORIDE 5 MG TABLET PO SCH (20:17)
[2016-08-08] MEDS: PREGABALIN 50 MG CAPSULE PO SCH (20:17)
[2016-08-08] MEDS: MIRTAZAPINE 15 MG TABLET PO SCH (20:17)
[2016-08-09] MEDS: HEPARIN SODIUM,PORCINE 5,000 UNITS/ML VIAL SQ SCH ×2 (00:26→08:45)
[2016-08-09 00:59] VITALS: BP 101/55
[2016-08-09] MEDS: ACETAMINOPHEN 325 MG TABLET PO PRN (05:39)
[2016-08-09] MEDS: FAMOTIDINE 20 MG TABLET PO SCH (05:51)
[2016-08-09] MEDS: LEVOTHYROXINE SODIUM 112 MCG TABLET PO SCH (05:51)
[2016-08-09 07:34] VITALS: BP 128/67
[2016-08-09] MEDS: CARBIDOPA/LEVODOPA 25-100 MG TABLET PO SCH (08:44)
[2016-08-09] MEDS: SULFAMETHOX/TRIMETH DS 800-160 MG/TABLET PO SCH (08:44)
[2016-08-09] MEDS: MetroNIDAZOLE 500 MG TABLET PO SCH (08:44)
[2016-08-09] MEDS: ASPIRIN 81 MG CHEWABLE TABLET PO SCH (08:44)
[2016-08-09] MEDS: LACTOBACILLUS ACIDOPHILUS/BULGARICUS GRANULES PACKET PO SCH (08:44)
[2016-08-09] MEDS ORDERED: FAMO20 PO (09:59)
[2016-08-09] MEDS ORDERED: Levothyroxine Sodium PO (09:59)
[2016-08-09] MEDS ORDERED: MULT-1239 PO (09:59)
[2016-08-09] MEDS ORDERED: ASPI81 PO (09:59)
[2016-08-09] MEDS ORDERED: MIRT15 PO (09:59)
[2016-08-09] MEDS ORDERED: CARB1TAB35 PO (09:59)
[2016-08-09] MEDS ORDERED: DIVA500T2 PO (09:59)
[2016-08-09] MEDS ORDERED: ACID1GRA3 PO (09:59)
[2016-08-09] MEDS: DIVALPROEX SODIUM 500 MG DR TABLET PO SCH (12:09)
[2016-08-09] MEDS: MULTIVITAMINS WITH MINERALS, THERAPEUTIC TABLET PO SCH (12:09)
== END 2016-08-09 15:00 | disposition home health service (06) | DRG 56 ==
LOC: 2WR 11:15
DX: G20 Parkinson's disease (principal); E43 Unspecified severe protein-calorie malnutrition; N17.9 Acute kidney failure, unspecified; N39.0 Urinary tract infection, site not specified; A04.7 Enterocolitis due to Clostridium difficile; F33.1 Major depressive disorder, recurrent, moderate; K21.9 Gastro-esophageal reflux disease without esophagitis; F03.90 Unspecified dementia, unspecified severity, without behavioral disturbance, psychotic disturbance, mood disturbance, and anxiety; E78.5 Hyperlipidemia, unspecified; E86.0 Dehydration; E03.9 Hypothyroidism, unspecified; R62.7 Adult failure to thrive; D64.9 Anemia, unspecified; Z96.619 Presence of unspecified artificial shoulder joint; K59.00 Constipation, unspecified; I10 Essential (primary) hypertension; G47.00 Insomnia, unspecified; G40.909 Epilepsy, unspecified, not intractable, without status epilepticus; S42.251D Displaced fracture of greater tuberosity of right humerus, subsequent encounter for fracture with routine healing; G62.9 Polyneuropathy, unspecified; Z88.5 Allergy status to narcotic agent; Z88.8 Allergy status to other drugs, medicaments and biological substances; Z88.6 Allergy status to analgesic agent; Z87.440 Personal history of urinary (tract) infections; Z91.81 History of falling; Z91.012 Allergy to eggs; Z90.710 Acquired absence of both cervix and uterus; Z90.49 Acquired absence of other specified parts of digestive tract; Z98.890 Other specified postprocedural states; X58.XXXD Exposure to other specified factors, subsequent encounter; Y93.89 Activity, other specified; Y92.89 Other specified places as the place of occurrence of the external cause; Y99.8 Other external cause status
CPT/HCPCS: 82962; 83930; 83935; 84443; 87081; 87086; 87324; 87449; 97110; 97112; 97116; 97163; 97166; 97530; 97535; 99366; J0696; J1644; J7050; Q0162

== ENCOUNTER 2017-03-12 13:45 | Inpatient (IN) | payer MEDICARE ==
[~2017-03-12] VITALS: Ht 157.5 cm; Wt 41.0 kg
[~2017-03-12 13:45] MED LIST changes: -ACET-784 PO; +ACID1GRA PO; +ASPI-556 PO; +ASPI81 PO; +CARB1TAB35 PO; -CRAN250T2 PO; +DIVA500T2 PO; +FAMO20 PO; -FURO40 PO; -HYDR1LIQ5 PO; +Levothyroxine Sodium PO; -MOM30 PO; +MULT-1239 PO; -NYST30C TP; -OMEP20 PO; -ONDA4TAB4 PO; -POTA20PA3 PO; -PREG50 PO; -PROP20 PO; -SIMV10 PO; -ZOLP5 PO
[2017-03-12 14:50] LABS: BASOPHILS % (AUTO) 0.5 % (0.0-2.0); EOSINOPHILS % (AUTO) 0.3 % (1.0-6.0); HEMATOCRIT 45.9 % (36-46); HEMOGLOBIN 15.8 g/dL (12.0-16.0); LYMPHOCYTES # (AUTO) 1.2 K/uL (1.0-4.8); LYMPHOCYTES % (AUTO) 19.6 % (22.0-44.0); MEAN CORPUSCULAR HGB CONC 34.4 G/dL (31.0-37.0); MEAN CORPUSCULAR VOLUME 93 fL (80-100); MONOCYTES # (AUTO) 0.4 K/uL (0.1-1.0); MONOCYTES % (AUTO) 6.5 % (2.0-9.0); NEUTROPHILS # (AUTO) 4.6 K/uL (1.8-7.7); NEUTROPHILS % (AUTO) 73.1 % (40.0-70.0); PLATELET COUNT (AUTO) 283 K/uL (150-450); RED BLOOD CELL COUNT(AUTO) 4.94 MIL/uL (4.00-5.20); WHITE BLOOD COUNT (AUTO) 6.3 K/uL (4.5-11.0)
[2017-03-12 15:19] LABS: ANION GAP 9 mmol/L (8-16); CARBON DIOXIDE 30 mmol/L (22-29); CHLORIDE 105 mmol/L (98-107); CREATININE 0.66 mg/dL (0.60-1.30); GLOMERULAR FILTR. RATE CALC > 60 mL/min (>60); POTASSIUM 3.8 mmol/L (3.5-5.1); SODIUM SERUM 144 mmol/L (136-145); UREA NITROGEN, BLOOD 11 mg/dL (7-18)
[2017-03-12 15:23] LABS: ALANINE AMINOTRANSFERASE 7 U/L (12-78); ALBUMIN 3.1 g/dL (3.4-5.0); ASPARTATE AMINOTRANSFERASE 11 U/L (15-37); BILIRUBIN,TOTAL 1.2 mg/dL (0.1-1.0); TOTAL PROTEIN, SERUM 6.1 g/dL (6.4-8.2)
[2017-03-12] MEDS ORDERED: SODIUM CHLORIDE 0.9% 1,000 ML IV ONE (16:00)
[2017-03-12] MEDS ORDERED: BISACODYL 10 MG RECTAL RECTAL SUPPOSITORY PR PRN (17:30)
[2017-03-12] MEDS ORDERED: ONDANSETRON HCL 4 MG/2 ML VIAL IVP PRN ×2 (17:30)
[2017-03-12] MEDS ORDERED: MAGNESIUM HYDROXIDE SUSPENSION 30 ML UDCUP PO PRN (17:30)
[2017-03-12] MEDS ORDERED: ZOLPIDEM TARTRATE 5 MG TABLET PO PRN (17:30)
[2017-03-12] MEDS ORDERED: ACETAMINOPHEN 325 MG TABLET PO PRN (17:30)
[2017-03-12] MEDS ORDERED: 0.9% SODIUM CHLORIDE 10 ML SYRINGE IVP PRN (17:30)
[2017-03-12] MEDS ORDERED: ALBUTEROL SULFATE 2.5 MG/0.5 ML NEB SOLUTION NEB PRN (17:30)
[2017-03-12] MEDS ORDERED: IPRATROPIUM BROMIDE 0.5 MG/2.5 ML NEB SOLUTION NEB PRN (17:30)
[2017-03-12 17:45] VITALS: BP 124/66
[2017-03-12 19:40] VITALS: BP 110/65
[2017-03-12] MEDS: CARBIDOPA/LEVODOPA 25-100 MG TABLET PO SCH ×2 (20:00→20:07)
[2017-03-12] MEDS: MIRTAZAPINE 15 MG TABLET PO SCH ×2 (20:00→20:06)
[2017-03-12] MEDS: LACTOBACILLUS ACIDOPHILUS/BULGARICUS GRANULES PACKET PO SCH ×2 (20:00→20:06)
[2017-03-13 00:23] VITALS: BP 109/66
[2017-03-13 04:30] VITALS: BP 106/53
[2017-03-13 06:24] LABS: BASOPHILS # (AUTO) 0.02 K/uL (0.00-0.20); BASOPHILS % (AUTO) 0.4 % (0.0-2.0); EOSINOPHILS # (AUTO) 0.06 K/uL (0.00-0.70); EOSINOPHILS % (AUTO) 0.88 % (1.0-6.0); HEMATOCRIT 40.6 % (36-46); HEMOGLOBIN 13.8 g/dL (12.0-16.0); LYMPHOCYTES # (AUTO) 1.8 K/uL (1.0-4.8); LYMPHOCYTES % (AUTO) 28.8 % (22.0-44.0); MEAN CORPUSCULAR HEMOGLOBIN 31.9 pg (26.0-34.0); MEAN CORPUSCULAR VOLUME 94 fL (80-100); MONOCYTES # (AUTO) 0.4 K/uL (0.1-1.0); MONOCYTES % (AUTO) 6.7 % (2.0-9.0); NEUTROPHILS % (AUTO) 63.3 % (40.0-70.0); PLATELET COUNT (AUTO) 223 K/uL (150-450); RED BLOOD CELL COUNT(AUTO) 4.33 MIL/uL (4.00-5.20); RED CELL DISTRIBUTION WIDTH 12.9 % (11.5-14.5); WHITE BLOOD COUNT (AUTO) 6.3 K/uL (4.5-11.0)
[2017-03-13] MEDS: LEVOTHYROXINE SODIUM 125 MCG TABLET PO SCH ×2 (06:30→09:00)
[2017-03-13] MEDS: FAMOTIDINE 20 MG TABLET PO SCH ×2 (06:30→09:00)
[2017-03-13 06:42] LABS: ANION GAP 6 mmol/L (8-16); CALCIUM, TOTAL 9.5 mg/dL (8.8-10.5); CARBON DIOXIDE 27 mmol/L (22-29); CHLORIDE 110 mmol/L (98-107); CHOL/HDL RATIO 2.1 (3.9-5.7); CREATINE KINASE, TOTAL 43 U/L (26-192); CREATININE 0.59 mg/dL (0.60-1.30); GLOMERULAR FILTR. RATE CALC > 60 mL/min (>60); POTASSIUM 3.4 mmol/L (3.5-5.1); SODIUM SERUM 143 mmol/L (136-145); THYROID STIMULATING HORMONE 0.06 uIU/mL (0.36-3.74); UREA NITROGEN, BLOOD 13 mg/dL (7-18)
[2017-03-13 07:33] VITALS: BP 104/60
[2017-03-13 07:40] LABS: HEMOGLOBIN A1C 5.4 % (4.5-6.2)
[2017-03-13] MEDS: CARBIDOPA/LEVODOPA 25-100 MG TABLET PO SCH ×3 (09:00→19:20)
[2017-03-13] MEDS: MULTIVITAMINS, THERAPEUTIC TABLET PO SCH ×2 (09:00→09:02)
[2017-03-13] MEDS: DIVALPROEX SODIUM 500 MG DR TABLET PO SCH ×2 (09:00→14:44)
[2017-03-13] MEDS: LACTOBACILLUS ACIDOPHILUS/BULGARICUS GRANULES PACKET PO SCH ×2 (09:00→19:19)
[2017-03-13] MEDS: ASPIRIN 81 MG CHEWABLE TABLET PO SCH (09:02)
[2017-03-13] MEDS: ENOXAPARIN SODIUM 40 MG/0.4 ML PF SYRINGE SQ SCH (09:02)
[2017-03-13 09:56] LABS: ERYTHROCYTE SEDIMENTATION RATE 4 MM/HR (0-20)
[2017-03-13] MEDS ORDERED: CYANOCOBALAMIN 1,000 MCG/ML VIAL IM ONE (10:00)
[2017-03-13] MEDS ORDERED: POTASSIUM CHLORIDE 20 MEQ ER TABLET PO ONE (10:00)
[2017-03-13] MEDS ORDERED: MAGNESIUM OXIDE 400 MG TABLET PO ONE (10:00)
[2017-03-13 11:19] LABS: GLUCOSE, URINE (UA) NEGATIVE (NEGATIVE); KETONES,URINE NEGATIVE (NEGATIVE); LEUKOCYTE ESTERASE ,URINE SMALL (NEGATIVE); OCCULT BLOOD,URINE NEGATIVE (NEGATIVE); PROTEIN,URINE NEGATIVE (NEGATIVE)
[2017-03-13 11:20] LABS: APPEARANCE,URINE HAZY (CLEAR)
[2017-03-13 11:31] VITALS: BP 119/64
[2017-03-13 12:16] LABS: SQUAMOUS EPITHELIAL CELL,UR Few /LPF (None Seen)
[2017-03-13 15:38] VITALS: BP 99/57
[2017-03-13] MEDS ORDERED: MAGNESIUM SULFATE 4 GM/WATER 100 ML IV PRN (16:00)
[2017-03-13] MEDS ORDERED: POTASSIUM CHL 10 MEQ/WATER 50 ML IV PRN (16:00)
[2017-03-13] MEDS ORDERED: MAGNESIUM SULFATE 2 GM in DEXTROSE 5%-WATER 50 ML IV PRN (16:00)
[2017-03-13] MEDS ORDERED: SODIUM CHLORIDE 0.9% 0 ML IV ONE (16:29)
[2017-03-13] MEDS ORDERED: SODIUM CHLORIDE 0.9% 250 ML IV ONE (18:14)
[2017-03-13 19:18] VITALS: BP 100/66
[2017-03-13] MEDS: CefTRIAXone 1 GM/DEXTROSE 50 ML IV SCH (19:19)
[2017-03-13] MEDS: MIRTAZAPINE 15 MG TABLET PO SCH (19:19)
[2017-03-14 05:59] LABS: BASOPHILS % (AUTO) 0.5 % (0.0-2.0); EOSINOPHILS % (AUTO) 1.2 % (1.0-6.0); HEMOGLOBIN 13.6 g/dL (12.0-16.0); LYMPHOCYTES # (AUTO) 1.4 K/uL (1.0-4.8); LYMPHOCYTES % (AUTO) 19.5 % (22.0-44.0); MEAN CORPUSCULAR HEMOGLOBIN 32.4 pg (26.0-34.0); MEAN CORPUSCULAR HGB CONC 34.8 G/dL (31.0-37.0); MEAN CORPUSCULAR VOLUME 93 fL (80-100); MONOCYTES # (AUTO) 0.5 K/uL (0.1-1.0); MONOCYTES % (AUTO) 6.1 % (2.0-9.0); NEUTROPHILS # (AUTO) 5.3 K/uL (1.8-7.7); NEUTROPHILS % (AUTO) 72.7 % (40.0-70.0); PLATELET COUNT (AUTO) 201 K/uL (150-450); RED BLOOD CELL COUNT(AUTO) 4.19 MIL/uL (4.00-5.20); RED CELL DISTRIBUTION WIDTH 12.8 % (11.5-14.5); WHITE BLOOD COUNT (AUTO) 7.4 K/uL (4.5-11.0)
[2017-03-14 06:44] LABS: ANION GAP 6 mmol/L (8-16); CALCIUM, TOTAL 9.3 mg/dL (8.8-10.5); CARBON DIOXIDE 28 mmol/L (22-29); CHLORIDE 109 mmol/L (98-107); CREATININE 0.62 mg/dL (0.60-1.30); GLOMERULAR FILTR. RATE CALC > 60 mL/min (>60); POTASSIUM 3.4 mmol/L (3.5-5.1); SODIUM SERUM 143 mmol/L (136-145); UREA NITROGEN, BLOOD 12 mg/dL (7-18)
[2017-03-14] MEDS: LEVOTHYROXINE SODIUM 75 MCG TABLET PO SCH (07:00)
[2017-03-14 07:34] VITALS: BP 111/70
[2017-03-14] MEDS: DIVALPROEX SODIUM 500 MG DR TABLET PO SCH (09:00)
[2017-03-14] MEDS: MULTIVITAMINS, THERAPEUTIC TABLET PO SCH (09:00)
[2017-03-14] MEDS: LACTOBACILLUS ACIDOPHILUS/BULGARICUS GRANULES PACKET PO SCH ×2 (09:11→19:38)
[2017-03-14] MEDS: CYANOCOBALAMIN 500 MCG TABLET PO SCH (09:12)
[2017-03-14] MEDS: ENOXAPARIN SODIUM 40 MG/0.4 ML PF SYRINGE SQ SCH (09:12)
[2017-03-14] MEDS: ASPIRIN 81 MG CHEWABLE TABLET PO SCH (09:12)
[2017-03-14] MEDS: CARBIDOPA/LEVODOPA 25-100 MG TABLET PO SCH ×3 (09:12→19:38)
[2017-03-14 12:17] VITALS: BP 105/54
[2017-03-14] MEDS ORDERED: MAGNESIUM SULFATE 2 GM in DEXTROSE 5%-WATER 50 ML IV PRN (12:30)
[2017-03-14] MEDS ORDERED: MAGNESIUM OXIDE 400 MG TABLET PO PRN (12:30)
[2017-03-14] MEDS ORDERED: POTASSIUM CHLORIDE 20 MEQ ER TABLET PO ONE (12:30)
[2017-03-14] MEDS ORDERED: MAGNESIUM SULFATE 4 GM/WATER 100 ML IV PRN (12:30)
[2017-03-14 13:06] LABS: ALBUMIN 2.6 g/dL (3.4-5.0)
[2017-03-14 16:01] VITALS: BP 117/59
[2017-03-14] MEDS: CefTRIAXone 1 GM/DEXTROSE 50 ML IV SCH (16:43)
[2017-03-14] MEDS: LORazepam 0.5 MG TABLET PO PRN (18:16)
[2017-03-14] MEDS: MIRTAZAPINE 15 MG TABLET PO SCH (19:38)
[2017-03-14 19:43] VITALS: BP 99/54
[2017-03-14 23:29] VITALS: BP 104/59
[2017-03-15] MEDS: LEVOTHYROXINE SODIUM 75 MCG TABLET PO SCH (04:59)
[2017-03-15] MEDS: FAMOTIDINE 20 MG TABLET PO SCH (04:59)
[2017-03-15 05:24] VITALS: BP 121/72
[2017-03-15 06:45] LABS: BASOPHILS % (AUTO) 0.7 % (0.0-2.0); EOSINOPHILS % (AUTO) 2.2 % (1.0-6.0); HEMATOCRIT 43.4 % (36-46); LYMPHOCYTES # (AUTO) 1.4 K/uL (1.0-4.8); LYMPHOCYTES % (AUTO) 29.2 % (22.0-44.0); MEAN CORPUSCULAR HEMOGLOBIN 32.2 pg (26.0-34.0); MEAN CORPUSCULAR HGB CONC 34.6 G/dL (31.0-37.0); MEAN CORPUSCULAR VOLUME 93 fL (80-100); MONOCYTES # (AUTO) 0.4 K/uL (0.1-1.0); MONOCYTES % (AUTO) 7.8 % (2.0-9.0); NEUTROPHILS # (AUTO) 2.8 K/uL (1.8-7.7); NEUTROPHILS % (AUTO) 60.1 % (40.0-70.0); PLATELET COUNT (AUTO) 211 K/uL (150-450); RED BLOOD CELL COUNT(AUTO) 4.67 MIL/uL (4.00-5.20); RED CELL DISTRIBUTION WIDTH 12.8 % (11.5-14.5); WHITE BLOOD COUNT (AUTO) 4.7 K/uL (4.5-11.0)
[2017-03-15 07:15] VITALS: BP 130/71
[2017-03-15 07:33] LABS: ANION GAP 5 mmol/L (8-16); CALCIUM, TOTAL 10.1 mg/dL (8.8-10.5); CARBON DIOXIDE 31 mmol/L (22-29); CHLORIDE 109 mmol/L (98-107); CREATININE 0.58 mg/dL (0.60-1.30); GLOMERULAR FILTR. RATE CALC > 60 mL/min (>60); SODIUM SERUM 145 mmol/L (136-145); UREA NITROGEN, BLOOD 10 mg/dL (7-18)
[2017-03-15] MEDS: LACTOBACILLUS ACIDOPHILUS/BULGARICUS GRANULES PACKET PO SCH ×2 (09:00→22:12)
[2017-03-15] MEDS: ASPIRIN 81 MG CHEWABLE TABLET PO SCH (09:12)
[2017-03-15] MEDS: DIVALPROEX SODIUM 500 MG DR TABLET PO SCH (09:12)
[2017-03-15] MEDS: CYANOCOBALAMIN 500 MCG TABLET PO SCH (09:13)
[2017-03-15] MEDS: MULTIVITAMINS, THERAPEUTIC TABLET PO SCH (09:13)
[2017-03-15] MEDS: CARBIDOPA/LEVODOPA 25-100 MG TABLET PO SCH ×3 (09:18→22:12)
[2017-03-15] MEDS: ENOXAPARIN SODIUM 40 MG/0.4 ML PF SYRINGE SQ SCH (09:18)
[2017-03-15 11:18] VITALS: BP 114/65
[2017-03-15] MEDS: LORazepam 0.5 MG TABLET PO PRN ×2 (15:19→22:12)
[2017-03-15 15:29] VITALS: BP 120/69
[2017-03-15] MEDS: CefTRIAXone 1 GM/DEXTROSE 50 ML IV SCH (16:52)
[2017-03-15 19:37] VITALS: BP 117/64
[2017-03-15] MEDS: MIRTAZAPINE 15 MG TABLET PO SCH (22:12)
[2017-03-16] VITALS (11 sets, daily range): BP systolic 104–143; BP diastolic 57–84
[2017-03-16] MEDS ORDERED: ACETAMINOPHEN 325 MG TABLET PO PRN (03:15)
[2017-03-16] MEDS: FAMOTIDINE 20 MG TABLET PO SCH (06:30)
[2017-03-16] MEDS: LEVOTHYROXINE SODIUM 75 MCG TABLET PO SCH (06:30)
[2017-03-16] MEDS: LACTOBACILLUS ACIDOPHILUS/BULGARICUS GRANULES PACKET PO SCH (09:06)
[2017-03-16] MEDS: CARBIDOPA/LEVODOPA 25-100 MG TABLET PO SCH ×2 (09:07→16:14)
[2017-03-16] MEDS: CYANOCOBALAMIN 500 MCG TABLET PO SCH (09:07)
[2017-03-16] MEDS: MULTIVITAMINS, THERAPEUTIC TABLET PO SCH (09:07)
[2017-03-16] MEDS ORDERED: CYAN500 PO (11:02)
[2017-03-16] MEDS ORDERED: CEFX1I IV (11:03)
[2017-03-16] MEDS ORDERED: ACET-784 PO (11:04)
[2017-03-16] MEDS ORDERED: IPRA4AER IH (11:06)
[2017-03-16] MEDS ORDERED: BISA5TAB12 PO (11:07)
[2017-03-16] MEDS ORDERED: DIVALPROEX SODIUM 500 MG DR TABLET PO SCH (12:00)
[2017-03-16] MEDS: CefTRIAXone 1 GM/DEXTROSE 50 ML IV SCH (16:14)
== END 2017-03-16 17:00 | disposition still patient (30) | DRG 74 ==
LOC: EMS 13:46 → 5S 16:50
PROVIDERS: ADMIT Internal Medicine Geriatric Medicine; ATTEND Internal Medicine Geriatric Medicine
DX: G90.8 Other disorders of autonomic nervous system (principal); E44.0 Moderate protein-calorie malnutrition; G20 Parkinson's disease; E83.42 Hypomagnesemia; N39.0 Urinary tract infection, site not specified; D64.9 Anemia, unspecified; R55 Syncope and collapse; E03.9 Hypothyroidism, unspecified; K21.9 Gastro-esophageal reflux disease without esophagitis; B96.20 Unspecified Escherichia coli [E. coli] as the cause of diseases classified elsewhere; E53.8 Deficiency of other specified B group vitamins; E78.5 Hyperlipidemia, unspecified; F31.9 Bipolar disorder, unspecified; F41.9 Anxiety disorder, unspecified; I10 Essential (primary) hypertension; J44.9 Chronic obstructive pulmonary disease, unspecified; M79.7 Fibromyalgia; Z53.20 Procedure and treatment not carried out because of patient's decision for unspecified reasons; Z85.3 Personal history of malignant neoplasm of breast; Z91.19 Patient's noncompliance with other medical treatment and regimen; E87.6 Hypokalemia; Z88.5 Allergy status to narcotic agent; Z88.0 Allergy status to penicillin; Z88.8 Allergy status to other drugs, medicaments and biological substances; Z88.1 Allergy status to other antibiotic agents; Z91.012 Allergy to eggs
CPT/HCPCS: 70450; 82306; 82607; 82746; 83036; 83735; 84439; 84443; 85651; 86140; 87086; 93005; 93306; 93880; 96360; 96361; 97110; 97166; 99285; J0696; J1650; J3420; J3475; J7050; J7060

== ENCOUNTER 2017-05-15 14:21 | Emergency (ER) | payer MEDICARE ==
[~2017-05-15] VITALS: Ht 149.9 cm; Wt 50.0 kg
[~2017-05-15 14:21] MED LIST changes: +ACET-784 PO; -ASPI-556 PO; +BISA5TAB12 PO; -CARB1TAB35 PO; +CEFX1I IV; +CYAN500 PO; -DIVA500T2 PO; +IPRA4AER IH; -Levothyroxine Sodium PO; -MULT-1239 PO
[2017-05-15] MEDS ORDERED: SODIUM PHOS/SODIUM BIPHOS 133 ML ENEMA PR ONE (16:45)
[2017-05-15 18:39] VITALS: BP 120/86
== END 2017-05-15 18:54 | disposition home or self-care (01) ==
LOC: EMS 14:23
DX: R10.9 Unspecified abdominal pain (principal); K59.00 Constipation, unspecified; E03.9 Hypothyroidism, unspecified; E78.00 Pure hypercholesterolemia, unspecified; G20 Parkinson's disease; I10 Essential (primary) hypertension; K21.9 Gastro-esophageal reflux disease without esophagitis; M79.7 Fibromyalgia; Z85.3 Personal history of malignant neoplasm of breast; Z88.0 Allergy status to penicillin; Z90.710 Acquired absence of both cervix and uterus; Z91.012 Allergy to eggs
CPT/HCPCS: 74018; 99283

== ENCOUNTER 2018-01-11 17:51 | Inpatient (IN) | payer MEDICARE, MEDICAID ==
[~2018-01-11] VITALS: Ht 152.4 cm; Wt 45.5 kg
[~2018-01-11 17:51] MED LIST changes: -ACET-784 PO; -ACID1GRA PO; +AUD NEB; +BISA10S PR; -BISA5TAB12 PO; -CARB1TAB14 PO; +CARB1TAB35 PO; -CEFX1I IV; -CYAN500 PO; +DIVA125T32 PO; -DIVA500T35 PO; -FAMO20 PO; -IPRA4AER IH; +IPRNEB IH; -LEVO125T4 PO; +LEVO250P6 IV; +LEVO25TA9 PO; +MAGOX PO; -MIRT15 PO; +MOM30 PO; -MULT-1203 PO; +ONDA4 PO; +ZOLP5 PO; +[UNRECOGNIZED DRUG - CODE] PO
[2018-01-11] MEDS ORDERED: ONDANSETRON HCL 4 MG/2 ML VIAL IVP PRN (21:00)
[2018-01-11] MEDS ORDERED: 0.9% SODIUM CHLORIDE 10 ML SYRINGE IVP PRN (21:00)
[2018-01-11 22:38] VITALS: BP 115/71
[2018-01-11 22:41] LABS: HEMOGLOBIN 15.5 g/dL (12.0-16.0); LYMPHOCYTES # (AUTO) 1.7 K/uL (1.0-4.8); LYMPHOCYTES % (AUTO) 27.7 % (22.0-44.0)
[2018-01-11 22:51] LABS: ANION GAP 4 mmol/L (8-16); CALCIUM, TOTAL 10.2 mg/dL (8.8-10.5); CARBON DIOXIDE 31 mmol/L (22-29); CHLORIDE 106 mmol/L (98-107); CREATININE 0.69 mg/dL (0.60-1.30); GLUCOSE,RANDOM 104 mg/dL (70-110); POTASSIUM 4.3 mmol/L (3.5-5.1); SODIUM SERUM 141 mmol/L (136-145); UREA NITROGEN, BLOOD 24 mg/dL (7-18)
[2018-01-11 22:52] LABS: BASOPHILS % (AUTO) 0.4 % (0.0-2.0); EOSINOPHILS % (AUTO) 0.6 % (1.0-6.0); HEMATOCRIT 45.1 % (36-46); MEAN CORPUSCULAR HEMOGLOBIN 31.1 pg (26.0-34.0); MEAN CORPUSCULAR HGB CONC 34.3 G/dL (31.0-37.0); MEAN CORPUSCULAR VOLUME 91 fL (80-100); MONOCYTES # (AUTO) 0.6 K/uL (0.1-1.0); MONOCYTES % (AUTO) 9.2 % (2.0-9.0); NEUTROPHILS # (AUTO) 3.8 K/uL (1.8-7.7); NEUTROPHILS % (AUTO) 62.1 % (40.0-70.0); PLATELET COUNT (AUTO) 271 K/uL (150-450); RED BLOOD CELL COUNT(AUTO) 4.97 MIL/uL (4.00-5.20); RED CELL DISTRIBUTION WIDTH 14.2 % (11.5-14.5)
[2018-01-11 22:55] LABS: GLOMERULAR FILTR. RATE CALC > 60 mL/min (>60)
[2018-01-11 22:56] LABS: ALANINE AMINOTRANSFERASE 21 U/L (12-78); ALBUMIN 2.9 g/dL (3.4-5.0); ALKALINE PHOSPHATASE 96 U/L (46-116); ASPARTATE AMINOTRANSFERASE 13 U/L (15-37); BILIRUBIN,TOTAL 0.5 mg/dL (0.1-1.0); TOTAL PROTEIN, SERUM 6.2 g/dL (6.4-8.2)
[2018-01-11] MEDS ORDERED: ZOLPIDEM TARTRATE 5 MG TABLET PO PRN (23:15)
[2018-01-11] MEDS ORDERED: MAGNESIUM HYDROXIDE SUSPENSION 30 ML UDCUP PO PRN (23:15)
[2018-01-11] MEDS ORDERED: BISACODYL 10 MG RECTAL RECTAL SUPPOSITORY PR PRN ×2 (23:15)
[2018-01-11] MEDS ORDERED: ONDANSETRON HCL 4 MG TABLET PO PRN (23:15)
[2018-01-11] MEDS ORDERED: IPRATROPIUM BROMIDE 0.5 MG/2.5 ML NEB SOLUTION NEB PRN (23:15)
[2018-01-12 05:53] VITALS: BP 112/69
[2018-01-12] MEDS: LEVOTHYROXINE SODIUM 75 MCG TABLET PO SCH (06:34)
[2018-01-12] MEDS: ALBUTEROL SULFATE 2.5 MG/0.5 ML NEB SOLUTION NEB SCH ×5 (07:00→22:31)
[2018-01-12 08:31] VITALS: BP 114/64
[2018-01-12] MEDS: DIVALPROEX SODIUM 125 MG DR TABLET PO SCH ×4 (09:23→21:05)
[2018-01-12] MEDS: CARBIDOPA/LEVODOPA 25-100 MG TABLET PO SCH ×3 (09:23→21:05)
[2018-01-12] MEDS: MAGNESIUM OXIDE 400 MG TABLET PO SCH (09:23)
[2018-01-12] MEDS: ASPIRIN 81 MG CHEWABLE TABLET PO SCH (09:24)
[2018-01-12] MEDS ORDERED: 0.9% SODIUM CHLORIDE 5 ML NEB SOLUTION NEB ONE ×4 (11:03→22:30)
[2018-01-12] MEDS ORDERED: ACETAMINOPHEN 325 MG TABLET PO PRN (11:15)
[2018-01-12 11:55] VITALS: BP 116/72
[2018-01-12] MEDS: IBUPROFEN 600 MG TABLET PO PRN (13:56)
[2018-01-12 15:54] VITALS: BP 118/99
[2018-01-12 20:17] VITALS: BP 100/53
[2018-01-12 23:21] VITALS: BP 108/65
[2018-01-13] MEDS: ALBUTEROL SULFATE 2.5 MG/0.5 ML NEB SOLUTION NEB SCH ×6 (03:00→23:00)
[2018-01-13 05:30] VITALS: BP 123/79
[2018-01-13] MEDS: LEVOTHYROXINE SODIUM 75 MCG TABLET PO SCH (05:59)
[2018-01-13] MEDS: IBUPROFEN 600 MG TABLET PO PRN (06:35)
[2018-01-13 07:21] VITALS: BP 157/83
[2018-01-13] MEDS: MAGNESIUM OXIDE 400 MG TABLET PO SCH (09:34)
[2018-01-13] MEDS: DIVALPROEX SODIUM 125 MG DR TABLET PO SCH ×4 (09:34→23:49)
[2018-01-13] MEDS: ASPIRIN 81 MG CHEWABLE TABLET PO SCH (09:34)
[2018-01-13] MEDS: CARBIDOPA/LEVODOPA 25-100 MG TABLET PO SCH ×3 (09:34→20:57)
[2018-01-13 11:00] VITALS: BP 125/74
[2018-01-13 15:25] VITALS: BP 122/75
[2018-01-13 20:00] VITALS: BP 121/74
[2018-01-13] MEDS: CALCIUM OYSTER SHELL 250 MG-VIT D3 125 UNITS TABLET PO SCH (20:57)
[2018-01-13 23:00] VITALS: BP 119/78
[2018-01-14] MEDS: IBUPROFEN 600 MG TABLET PO PRN ×2 (00:49→10:54)
[2018-01-14] MEDS: ALBUTEROL SULFATE 2.5 MG/0.5 ML NEB SOLUTION NEB SCH ×4 (03:00→15:00)
[2018-01-14 04:00] VITALS: BP 116/82
[2018-01-14 05:37] LABS: HEMOGLOBIN A1C 5.3 % (4.5-6.2)
[2018-01-14] MEDS: LEVOTHYROXINE SODIUM 75 MCG TABLET PO SCH (05:37)
[2018-01-14 05:42] LABS: MAGNESIUM 1.7 mg/dL (1.80-2.40); PHOSPHORUS 3.3 mg/dL (2.5-4.9)
[2018-01-14] MEDS ORDERED: ALENDRONATE SODIUM 70 MG TABLET PO SCH (06:30)
[2018-01-14 08:19] VITALS: BP 122/82
[2018-01-14] MEDS: DIVALPROEX SODIUM 125 MG DR TABLET PO SCH ×2 (08:26→13:01)
[2018-01-14] MEDS: CALCIUM OYSTER SHELL 250 MG-VIT D3 125 UNITS TABLET PO SCH (08:27)
[2018-01-14] MEDS: CARBIDOPA/LEVODOPA 25-100 MG TABLET PO SCH (08:27)
[2018-01-14] MEDS: MAGNESIUM OXIDE 400 MG TABLET PO SCH (08:27)
[2018-01-14] MEDS: ASPIRIN 81 MG CHEWABLE TABLET PO SCH (08:27)
[2018-01-14 11:28] VITALS: BP 125/74
== END 2018-01-14 15:00 | DRG 551 ==
LOC: EMS 17:52 → 6N 21:00
PROVIDERS: ADMIT Internal Medicine Geriatric Medicine; ATTEND Internal Medicine Geriatric Medicine
DX: S12.600A Unspecified displaced fracture of seventh cervical vertebra, initial encounter for closed fracture (principal); E43 Unspecified severe protein-calorie malnutrition; Z68.1 Body mass index [BMI] 19.9 or less, adult; E03.9 Hypothyroidism, unspecified; E78.00 Pure hypercholesterolemia, unspecified; E78.5 Hyperlipidemia, unspecified; E83.42 Hypomagnesemia; F03.90 Unspecified dementia, unspecified severity, without behavioral disturbance, psychotic disturbance, mood disturbance, and anxiety; G20 Parkinson's disease; I10 Essential (primary) hypertension; K21.9 Gastro-esophageal reflux disease without esophagitis; M79.7 Fibromyalgia; F41.9 Anxiety disorder, unspecified; M25.422 Effusion, left elbow; R26.9 Unspecified abnormalities of gait and mobility; F31.9 Bipolar disorder, unspecified; R00.1 Bradycardia, unspecified; R79.89 Other specified abnormal findings of blood chemistry; Z91.012 Allergy to eggs; Z85.3 Personal history of malignant neoplasm of breast; Z87.440 Personal history of urinary (tract) infections; Z90.710 Acquired absence of both cervix and uterus; Z88.6 Allergy status to analgesic agent; Z88.0 Allergy status to penicillin; Z88.5 Allergy status to narcotic agent; Z88.8 Allergy status to other drugs, medicaments and biological substances; Z79.899 Other long term (current) drug therapy; Z90.49 Acquired absence of other specified parts of digestive tract; W18.39XA Other fall on same level, initial encounter; Y93.89 Activity, other specified; Y92.89 Other specified places as the place of occurrence of the external cause; Y99.8 Other external cause status
CPT/HCPCS: 29105; 70450; 72125; 83036; 83735; 84100; 94640; 97167; 97535; 99285

== ENCOUNTER 2021-06-30 05:09 | Inpatient (IN) | payer MEDICARE, OTHER ==
[~2021-06-30] VITALS: Ht 160 cm; Wt 61.0 kg
[~2021-06-30 05:09] MED LIST changes: +AMLO-257 PO; +ARIP2TAB20 PO; +ASPI-1450 PO; -ASPI81 PO; +ASPI81TA39 PO; -BISA10S PR; +BISA10SU11 PR; +CHOL200012 PO; +CLON0.1T2 PO; +DIVA-85 PO; -DIVA125T32 PO; +IBUP-2088 PO; -LEVO250P6 IV; -MAGOX PO; -MOM30 PO; +MULT-1203 PO; +ONDA-104 PO; -ONDA4 PO; +ZOLP-280 PO; -ZOLP5 PO; -[UNRECOGNIZED DRUG - CODE] PO
[2021-06-30] MEDS ORDERED: VANCOMYCIN HCL 1 GM/D5% WATER 200 ML IV ONE (05:30)
[2021-06-30] MEDS ORDERED: SODIUM CHLORIDE 0.9% 1,000 ML IV ONE ×2 (05:30→09:45)
[2021-06-30] MEDS ORDERED: NOREPINEPHRINE 4 MG/D5%-WATER 250 ML IV PRN (05:30)
[2021-06-30] MEDS ORDERED: LEVOFLOXACIN 750 MG/D5% WATER 150 ML IV ONE (05:30)
[2021-06-30] MEDS ORDERED: PHENYLEPHRINE HCL IN 0.9% NACL 400 MCG/10 ML SYRINGE IVP ONE ×2 (05:32→05:35)
[2021-06-30] MEDS ORDERED: DEXTROSE 50%-WATER 25 GM/50 ML SYRINGE IVP ONE ×4 (05:43→05:58)
[2021-06-30] MEDS ORDERED: PHENYLEPHRINE 200 MG/D5%-WATER 250 ML IV PRN (05:45)
[2021-06-30 05:59] LABS: BASOPHILS % (AUTO) 0.2 % (0.0-2.0); EOSINOPHILS % (AUTO) 0 % (1.0-6.0); HEMATOCRIT 38.5 % (36-46); HEMOGLOBIN 12.3 g/dL (12.0-16.0); LYMPHOCYTES # (AUTO) 1.1 K/uL (1.0-4.8); LYMPHOCYTES % (AUTO) 23.2 % (22.0-44.0); MEAN CORPUSCULAR HEMOGLOBIN 31.2 pg (26.0-34.0); MEAN CORPUSCULAR VOLUME 98 fL (80-100); MONOCYTES # (AUTO) 0.1 K/uL (0.1-1.0); MONOCYTES % (AUTO) 2.7 % (2.0-9.0); NEUTROPHILS # (AUTO) 3.6 K/uL (1.8-7.7); NEUTROPHILS % (AUTO) 73.9 % (40.0-70.0); PLATELET COUNT (AUTO) 280 K/uL (150-450); RED BLOOD CELL COUNT(AUTO) 3.95 MIL/uL (4.00-5.20); RED CELL DISTRIBUTION WIDTH 17.6 % (11.5-14.5)
[2021-06-30] MEDS ORDERED: PHENYLEPHRINE HCL 400 MG in DEXTROSE 5%-WATER 210 ML IV PRN (06:00)
[2021-06-30 06:15] LABS: AMMONIA 46 umol/L (11-32)
[2021-06-30 06:19] LABS: INR 1.2 (0.9-1.1)
[2021-06-30 06:20] LABS: B-TYPE NATRIURETIC PEPTIDE 115 pg/mL (0-100); LACTIC ACID 7.9 mmol/L (0.4-2.0)
[2021-06-30 06:20] LABS: COVID AG,FIA SOURCE NASOPHARYNGEAL
[2021-06-30 06:29] LABS: SOURCE, BLOOD GAS ARTERIAL; TEMPERATURE, FAHRENHEIT, BG 98.6 FAHREN (96.0-98.6)
[2021-06-30] MEDS ORDERED: DOPamine 400MG/D5W[STANDARD] 250 ML IV PRN (06:30)
[2021-06-30 06:31] LABS: APPEARANCE,URINE TURBID (CLEAR); BILIRUBIN,URINE NEGATIVE (NEGATIVE); GLUCOSE, URINE (UA) 150-200 mg/dL (NEGATIVE); KETONES,URINE TRACE mg/dL (NEGATIVE); LEUKOCYTE ESTERASE ,URINE LARGE (NEGATIVE); NITRATE,URINE NEGATIVE (NEGATIVE); OCCULT BLOOD,URINE MODERATE (NEGATIVE); PH,URINE 5.5 (5.0-8.0); PROTEIN,URINE 100-200,SEE CONFIRM mg/dL (NEGATIVE); SPECIFIC GRAVITIY, URINE 1.013 (1.003-1.030)
[2021-06-30 06:33] LABS: ALANINE AMINOTRANSFERASE 6 U/L (12-78); ALBUMIN 1.7 g/dL (3.4-5.0); ALKALINE PHOSPHATASE 99 U/L (46-116); ANION GAP 18 mmol/L (8-16); ASPARTATE AMINOTRANSFERASE 55 U/L (15-37); BILIRUBIN,TOTAL 0.8 mg/dL (0.1-1.0); CALCIUM, TOTAL 8.4 mg/dL (8.8-10.5); CARBON DIOXIDE 22 mmol/L (22-29); CHLORIDE 102 mmol/L (98-107); CREATININE 3.12 mg/dL (0.60-1.30); GLOMERULAR FILTR. RATE CALC 14 mL/min (>60); PHOSPHORUS 5.1 mg/dL (2.5-4.9); POTASSIUM 3.9 mmol/L (3.5-5.1); SODIUM SERUM 142 mmol/L (136-145); TOTAL PROTEIN, SERUM 4.4 g/dL (6.4-8.2); UREA NITROGEN, BLOOD 74 mg/dL (7-18)
[2021-06-30 06:33] LABS: ABG BASE EXCESS -12.5 mmol/L (-2.0-3.0); ABG HCO3 15.4 mmol/L (22.0-26.0); ABG METHEMOGLOBIN 0.3 % (0.0-1.5); ABG OXYGEN CONTENT 17.1 mL/dL (15.0-23.0); ABG OXYGEN SATURATION 99.3 % (95.0-98.0); ABG PCO2 35 mmHg (35-45); ABG PH 7.246 (7.35-7.450); ABG TOTAL HEMOGLOBIN 11.8 G/dL (12.0-18.0); PO2, ARTERIAL BG 266.5 mmHg (71.0-79.0)
[2021-06-30 06:34] LABS: O2 DEVICE,BLOOD GAS VENTILATOR (ROOM AIR); SITE, BLOOD GAS RT FEMORAL; VT, ABG 400 ml
[2021-06-30 06:35] LABS: PEEP,BG 5 cm H2O; SPONTANEOUS VT, BG 395 ml
[2021-06-30 06:41] LABS: CREATINE KINASE, TOTAL ONLY 1252 U/L (26-192)
[2021-06-30 06:43] LABS: GLUCOSE,RANDOM 681 mg/dL (70-110)
[2021-06-30 06:57] LABS: SULFOSALICYLIC ACID,URINE 4+ (Negative)
[2021-06-30 06:58] LABS: BACTERIA,URINE Many /HPF (None Seen); SQUAMOUS EPITHELIAL CELL,UR Few /LPF (None Seen); WBC,URINE Full Field /HPF (0-5)
[2021-06-30] MEDS ORDERED: AMIODARONE HCL 150 MG in DEXTROSE 5%-WATER 97 ML IV ONE (07:00)
[2021-06-30] MEDS ORDERED: AMIODARONE HCL 360 MG in DEXTROSE 5%-WATER 242.8 ML IV ONE ×4 (07:00)
[2021-06-30] MEDS ORDERED: EPINEPHrine 2 MG in DEXTROSE 5%-WATER 248 ML IV PRN (07:15)
[2021-06-30] MEDS ORDERED: DIGOXIN 250 MCG/ML 2 ML AMP IVP ONE (07:15)
[2021-06-30] MEDS ORDERED: ONDANSETRON HCL 4 MG/2 ML VIAL IVP PRN ×2 (07:45→10:30)
[2021-06-30] MEDS ORDERED: DOPamine 800MG/D5W[DOUBLE] 250 ML IV PRN (09:15)
[2021-06-30] MEDS ORDERED: NOREPINEPHRINE BITARTRATE 16 MG in DEXTROSE 5%-WATER 234 ML IV PRN (09:15)
[2021-06-30] MEDS ORDERED: PHENYLEPHRINE HCL 800 MG in DEXTROSE 5%-WATER 170 ML IV PRN (09:15)
[2021-06-30] MEDS ORDERED: EPINEPHrine 4 MG in DEXTROSE 5%-WATER 246 ML IV PRN (10:15)
[2021-06-30] MEDS ORDERED: DEXTROSE 50%-WATER 25 GM/50 ML SYRINGE IVP PRN (10:30)
[2021-06-30] MEDS ORDERED: ACETAMINOPHEN 325 MG TABLET PO PRN (10:30)
[2021-06-30] MEDS ORDERED: IPRATROPIUM BROMIDE 0.5 MG/2.5 ML NEB SOLUTION NEB PRN (10:30)
[2021-06-30] MEDS ORDERED: INSULIN LISPRO 100 UNITS/ML SQ PRN (10:30)
[2021-06-30] MEDS ORDERED: ALBUTEROL SULFATE 2.5 MG/0.5 ML NEB SOLUTION NEB PRN (10:30)
[2021-06-30] MEDS ORDERED: *CLINICAL-CEFEPIME DOSING CLINICAL ONE (10:30)
[2021-06-30] MEDS ORDERED: BISACODYL 10 MG RECTAL RECTAL SUPPOSITORY PR PRN (10:30)
[2021-06-30] MEDS ORDERED: FAMOTIDINE 10 MG/ML 2 ML VIAL IVP SCH (10:30)
[2021-06-30] MEDS ORDERED: ROCURONIUM BROMIDE 10 MG/ML 5 ML VIAL ONE (10:33)
[2021-06-30] MEDS ORDERED: ETOMIDATE 2 MG/ML 10 ML VIAL ONE (10:33)
[2021-06-30] MEDS ORDERED: VANCOMYCIN HCL 1 GM/D5% WATER 200 ML IV PRN (11:00)
[2021-06-30 11:41] LABS: GLUCOSE,POINT OF CARE > 600 MG/DL (70-110)
[2021-06-30] MEDS ORDERED: CEFEPIME HCL 1 GM in DEXTROSE 5%-WATER 50 ML IV SCH (12:00)
[2021-06-30] MEDS ORDERED: AMIODARONE HCL 540 MG in DEXTROSE 5%-WATER 239.2 ML IV ONE ×4 (13:00)
[2021-06-30 13:23] VITALS: BP 27/12
[2021-06-30 13:28] LABS: ALBUMIN 1.2 g/dL (3.4-5.0); BILIRUBIN,TOTAL 1.1 mg/dL (0.1-1.0); CALCIUM, TOTAL 7.2 mg/dL (8.8-10.5); CREATININE 2.87 mg/dL (0.60-1.30); POTASSIUM 3.5 mmol/L (3.5-5.1); TOTAL PROTEIN, SERUM 3.5 g/dL (6.4-8.2)
[2021-06-30 20:56] LABS: GLUCOSE,POINT OF CARE 239 MG/DL (70-110)
[2021-07-01] MEDS ORDERED: AMIODARONE HCL 750 MG in DEXTROSE 5%-WATER 485 ML IV SCH ×4 (07:00)
== END 2021-06-30 13:40 | DRG 871 ==
LOC: EMS 05:09 → EDUNIT# 05:09 → ICU 07:42
PROVIDERS: ADMIT Internal Medicine; ATTEND Internal Medicine
PROC: 02HV33Z Insertion of Infusion Device into Superior Vena Cava, Percutaneous Approach (ICD-10-PCS; principal; 2021-06-30)
PROC: B548ZZA Ultrasonography of Superior Vena Cava, Guidance (ICD-10-PCS; 2021-06-30)
PROC: 06HY33Z Insertion of Infusion Device into Lower Vein, Percutaneous Approach (ICD-10-PCS; 2021-06-30)
PROC: B54BZZA Ultrasonography of Right Lower Extremity Veins, Guidance (ICD-10-PCS; 2021-06-30)
PROC: 04HY32Z Insertion of Monitoring Device into Lower Artery, Percutaneous Approach (ICD-10-PCS; 2021-06-30)
PROC: 0BH17EZ Insertion of Endotracheal Airway into Trachea, Via Natural or Artificial Opening (ICD-10-PCS; 2021-06-30)
PROC: 5A1935Z Respiratory Ventilation, Less than 24 Consecutive Hours (ICD-10-PCS; 2021-06-30)
DX: A41.9 Sepsis, unspecified organism (principal); J96.00 Acute respiratory failure, unspecified whether with hypoxia or hypercapnia; R65.21 Severe sepsis with septic shock; J69.0 Pneumonitis due to inhalation of food and vomit; N17.9 Acute kidney failure, unspecified; I47.2 Ventricular tachycardia; G93.1 Anoxic brain damage, not elsewhere classified; G20 Parkinson's disease; E03.9 Hypothyroidism, unspecified; E11.22 Type 2 diabetes mellitus with diabetic chronic kidney disease; E11.649 Type 2 diabetes mellitus with hypoglycemia without coma; E78.00 Pure hypercholesterolemia, unspecified; E78.5 Hyperlipidemia, unspecified; E88.09 Other disorders of plasma-protein metabolism, not elsewhere classified; M79.7 Fibromyalgia; F31.9 Bipolar disorder, unspecified; I12.9 Hypertensive chronic kidney disease with stage 1 through stage 4 chronic kidney disease, or unspecified chronic kidney disease; I48.91 Unspecified atrial fibrillation; F41.9 Anxiety disorder, unspecified; Z20.822 Contact with and (suspected) exposure to COVID-19; N18.9 Chronic kidney disease, unspecified; I46.9 Cardiac arrest, cause unspecified; K21.9 Gastro-esophageal reflux disease without esophagitis; R57.0 Cardiogenic shock; Z79.899 Other long term (current) drug therapy; Z88.0 Allergy status to penicillin; Z90.49 Acquired absence of other specified parts of digestive tract; Z90.710 Acquired absence of both cervix and uterus; Z85.3 Personal history of malignant neoplasm of breast; Z88.6 Allergy status to analgesic agent; Z88.5 Allergy status to narcotic agent; Z90.12 Acquired absence of left breast and nipple
CPT/HCPCS: 31500; 36556; 36600; 71045; 80053; 81001; 81002; 82140; 82550; 82805; 82962; 83605; 83735; 83880; 84100; 84145; 84484; 85025; 85610; 85730; 87040; 87086; 92950; 93005; 93306; 94002; 99291; G0378; J0171; J0282; J0692; J1160; J1265; J1956; J2370; J3370; J3490; J7060; Q9967; 36415-L1; 36415-TC